=== PATIENT | female | born 1960 | race Caucasian/White ===

== ENCOUNTER 2023-08-18 10:40 | Inpatient (IN) ==
[2023-08-18] MEDS: Lactated Ringers 1000 ml BAG 1,000 ML IV ONE (11:25)
[2023-08-18] MEDS: Piperacillin/Tazobac 3.375 BAG 3.375 GM/100 ML BAG IV ONE (11:25)
[2023-08-18 11:28] LABS: Hematocrit 29.7 % (35-45); Hemoglobin 9.7 g/dL (11.5-14.3); Mean Corpuscular Hemoglobin 30.8 pg (27-33); Mean Corpuscular Hgb Conc 32.6 g/dL (31-36); Mean Corpuscular Volume 94.3 fL (80-97); Mean Platelet Volume 8.7 fL (7.5-11.2); Platelet Count 481 10^3/uL (150-450); Red Blood Count 3.15 10^6/uL (3.63-4.92); Red Cell Distribution Width 16.6 % (12-17); White Blood Count 19.6 10^3/uL (3.8-11.8)
[2023-08-18 11:39] LABS: Urine Appearance Extra Turbid; Urine Bilirubin Negative (Negative); Urine Blood 2+ (Negative); Urine Glucose Negative (Negative); Urine Ketones Negative (Negative); Urine Nitrite Negative (Negative); Urine Protein 2+ (>=100 mg/dL) (Negative); Urine Specific Gravity 1.015 (1.002-1.030); Urine Urobilinogen Negative (Negative); Urine pH 6.5 (5.0-8.0)
[2023-08-18 11:42] LABS: INR 1.83 (0.83-1.13)
[2023-08-18 11:45] LABS: Urine Bacteria 2+ /HPF (Absent); Urine Color Yellow; Urine Red Blood Cell 3+(>10/hpf) /HPF (0-Trace); Urine Squamous Epithelial Cell Present /HPF (Absent); Urine White Blood Cell 3+(>20/hpf) /HPF (0-Trace)
[2023-08-18 11:51] LABS: Albumin 3.1 g/dL (3.2-5.2); Albumin/Globulin Ratio 0.8 (1-3); Calcium 9.8 mg/dL (8.6-10.3); Creatinine, Serum 8.06 mg/dL (0.51-0.95); Globulin 4.1 g/dL (2-4); Potassium 5.2 mmol/L (3.5-5.0); Total Bilirubin 0.3 mg/dL (0.2-1.0); Total Protein 7.2 g/dL (6.4-8.9); eGFR CKD-EPI 5.2 (>60)
[2023-08-18 11:56] LABS: ABS Basophils 0.1 10^3/uL (0.0-0.1); ABS Eosinophils 0.2 10^3/uL (0.0-0.5); ABS Lymphocytes 1.2 10^3/uL (1.0-4.8); ABS Monocytes 2.2 10^3/uL (0.0-0.9); ABS Neutrophils 15.9 10^3/uL (1.5-7.6); ABS Nucleated RBC 0.06 10^3/ul; Eosinophil % 0.9 %; Lymphocyte % 6.1 %; Nucleated Red Blood Cells % 0.3 %/100WBC (0.0-0.8); RBC Morphology Normal (Normal)
[2023-08-18] MEDS: Vancomycin 1,000 MG in NS 0.9% 250 ml 250 ML IVPB ONE (12:11)
[2023-08-18 13:09] LABS: C Reactive Protein 559.27 mg/L (<8.01)
[2023-08-18 13:11] LABS: High Sensitivity Troponin 1 Hr 35 pg/mL (<15)
[2023-08-18 15:29] LABS: Body Fluid Total Nucleated 55 /mcL
[2023-08-18 15:40] LABS: Body Fluid Appearance Cloudy; Body Fluid Source Peritonial Fluid
[2023-08-18 15:41] LABS: Body Fluid Color Colorless
[2023-08-18 16:05] LABS: Body Fluid Mono 28 %; Body Fluid Total Cells Counted 200
[2023-08-18] MEDS ORDERED: oxyCODONE/Acetamin 5/325 mg TAB PO ONE (16:43)
[2023-08-18] MEDS ORDERED: Zosyn per Pharmacy NOTE FOLLOW UP SCH (19:00)
[2023-08-18] MEDS ORDERED: DOXYcycline 100 MG in NS 0.9% 250 ml 250 ML IVPB SCH (20:00)
[2023-08-18] MEDS ORDERED: Azithromycin 500 mg/250 ml NS 500 MG/250 ML BAG IVPB SCH (20:00)
[2023-08-18] MEDS: ZOSYN 3.375 GM x ONE DOSE over 30 miuntes IV (20:14)
[2023-08-18] MEDS: Doxycycline 100 MG in NS 0.9% 250 ML BAG IVPB SCH (21:04)
[2023-08-18] MEDS: CMCS:Febuxostat 40 mg TAB (NF) PO SCH (21:29)
[2023-08-18] MEDS ORDERED: Palonosetron 0.25 MG in NS 0.9% 50 ML 50 ML IVPB ONE (21:40)
[2023-08-18] MEDS: PALONOSETRON HCL 0.05 MG/ML (0.25 MG) SYRINGE (0.05 MG/ML) IV ONE (22:49)
[2023-08-18] MEDS: cycloSPORINE Modified 25mg CAP PO SCH (23:14)
[2023-08-19] MEDS: ZOSYN 3.375 GM Q12H per EXTENDED INFUSION IV SCH (00:23)
[2023-08-19 01:50] LABS: Calcium 8.6 mg/dL (8.6-10.3); Creatinine, Serum 7.44 mg/dL (0.51-0.95); eGFR CKD-EPI 5.8 (>60)
[2023-08-19] MEDS: oxyCODONE/Acetamin 5/325 mg TAB PO PRN (02:07)
[2023-08-19 06:22] LABS: Hematocrit 23.8 % (35-45); Hemoglobin 7.7 g/dL (11.5-14.3); Mean Corpuscular Hemoglobin 30.3 pg (27-33); Mean Corpuscular Hgb Conc 32.2 g/dL (31-36); Mean Platelet Volume 8.6 fL (7.5-11.2); Platelet Count 413 10^3/uL (150-450); Red Blood Count 2.53 10^6/uL (3.63-4.92); Red Cell Distribution Width 16.4 % (12-17); White Blood Count 17.9 10^3/uL (3.8-11.8)
[2023-08-19 06:36] LABS: ABS Eosinophils 0.1 10^3/uL (0.0-0.5); ABS Lymphocytes 0.7 10^3/uL (1.0-4.8); ABS Monocytes 1.6 10^3/uL (0.0-0.9); ABS Neutrophils 15.4 10^3/uL (1.5-7.6); ABS Nucleated RBC 0.02 10^3/ul; Eosinophil % 0.7 %; Lymphocyte % 3.9 %; Nucleated Red Blood Cells % 0.1 %/100WBC (0.0-0.8)
[2023-08-19 06:54] LABS: Albumin 2.5 g/dL (3.2-5.2); Albumin/Globulin Ratio 0.8 (1-3); Calcium 8.5 mg/dL (8.6-10.3); Globulin 3.3 g/dL (2-4); Potassium 5.1 mmol/L (3.5-5.0); Total Bilirubin 0.3 mg/dL (0.2-1.0); Total Protein 5.8 g/dL (6.4-8.9)
[2023-08-19 07:36] LABS: Creatinine, Serum 7.86 mg/dL (0.51-0.95); eGFR CKD-EPI 5.4 (>60)
[2023-08-19 13:02] LABS: Hematocrit 24.6 % (35-45); Hemoglobin 7.9 g/dL (11.5-14.3)
[2023-08-19] MEDS: Heparin 1,000 UNIT/ML 10 ml (10,000 UNITS) CATHLAB/DIALYSIS DIALYSIS SCH (15:00)
[2023-08-19 16:23] LABS: Glucose, BF 149 mg/dL
[2023-08-19] MEDS: Polyethylene Glycol 3350 17 GM PACKET PO SCH (21:07)
[2023-08-20] MEDS: cefTRIAXone VIAL 1,000 MG in NS 0.9% 50 ML 50 ML IVPB SCH (14:25)
[2023-08-20] MEDS ORDERED: Zosyn per Pharmacy NOTE FOLLOW UP SCH (16:00)
[2023-08-20 21:00] LABS: Fungitell Qualitative Result Negative (Negative); Fungitell Quantitative Value 46 pg/mL (<60 pg/mL)
[2023-08-21 06:21] LABS: Hematocrit 22.2 % (35-45); Hemoglobin 7.3 g/dL (11.5-14.3); Mean Corpuscular Hgb Conc 32.9 g/dL (31-36); Mean Corpuscular Volume 94.2 fL (80-97); Platelet Count 411 10^3/uL (150-450); Red Blood Count 2.35 10^6/uL (3.63-4.92); Red Cell Distribution Width 16.2 % (12-17); White Blood Count 10.8 10^3/uL (3.8-11.8)
[2023-08-21 06:56] LABS: Calcium 8.3 mg/dL (8.6-10.3); Creatinine, Serum 6.18 mg/dL (0.51-0.95); Magnesium 2.2 mg/dL (1.9-2.7); Potassium 4.4 mmol/L (3.5-5.0); eGFR CKD-EPI 7.2 (>60)
[2023-08-21 07:25] LABS: ABS Basophils 0.1 10^3/uL (0.0-0.1); ABS Eosinophils 0.1 10^3/uL (0.0-0.5); ABS Lymphocytes 1.1 10^3/uL (1.0-4.8); ABS Monocytes 1.6 10^3/uL (0.0-0.9); ABS Neutrophils 7.9 10^3/uL (1.5-7.6); ABS Nucleated RBC 0.01 10^3/ul; Anisocytosis 1+; Eosinophil % 1.3 %; Lymphocyte % 10.6 %; Nucleated Red Blood Cells % 0.1 %/100WBC (0.0-0.8)
[2023-08-21] MEDS: cefTRIAXone 1 gm/50 mL D5W 1 GM/50 ML BAG IV SCH (11:23)
[2023-08-21] MEDS ORDERED: Polyethylene Glycol 3350 17 GM PACKET PO PRN (11:54)
[2023-08-22 05:53] LABS: Hematocrit 22.5 % (35-45); Hemoglobin 7.4 g/dL (11.5-14.3); Mean Corpuscular Hemoglobin 30.8 pg (27-33); Mean Corpuscular Hgb Conc 32.9 g/dL (31-36); Mean Corpuscular Volume 93.6 fL (80-97); Mean Platelet Volume 8.3 fL (7.5-11.2); Platelet Count 429 10^3/uL (150-450); Red Blood Count 2.41 10^6/uL (3.63-4.92); Red Cell Distribution Width 16.2 % (12-17)
[2023-08-22 06:55] LABS: Calcium 8.5 mg/dL (8.6-10.3); Creatinine, Serum 5.84 mg/dL (0.51-0.95); Potassium 4.5 mmol/L (3.5-5.0); eGFR CKD-EPI 7.7 (>60)
[2023-08-22 08:03] LABS: ABS Eosinophils 0.2 10^3/uL (0.0-0.5); ABS Lymphocytes 1.2 10^3/uL (1.0-4.8); ABS Monocytes 1.6 10^3/uL (0.0-0.9); ABS Nucleated RBC 0.03 10^3/ul; Eosinophil % 1.6 %; Nucleated Red Blood Cells % 0.3 %/100WBC (0.0-0.8)
[2023-08-22 08:13] LABS: RBC Morphology Normal (Normal)
[2023-08-23] MEDS: cloNIDine 0.2 MG PATCH 0.2 MG/24 HR 7 DAY PATCH TRANSDERM SCH (08:14)
[2023-08-23 09:48] LABS: Hematocrit 24.2 % (35-45); Mean Corpuscular Hemoglobin 30.4 pg (27-33); Mean Corpuscular Hgb Conc 32.8 g/dL (31-36); Mean Corpuscular Volume 92.8 fL (80-97); Mean Platelet Volume 7.8 fL (7.5-11.2); Platelet Count 453 10^3/uL (150-450); Red Blood Count 2.61 10^6/uL (3.63-4.92); White Blood Count 16.3 10^3/uL (3.8-11.8)
[2023-08-23 10:16] LABS: Calcium 8.7 mg/dL (8.6-10.3); Creatinine, Serum 5.2 mg/dL (0.51-0.95); Magnesium 2.1 mg/dL (1.9-2.7); Phosphorus 5.4 mg/dL (2.5-5.0); Potassium 4.6 mmol/L (3.5-5.0); eGFR CKD-EPI 8.9 (>60)
[2023-08-23 10:22] LABS: ABS Basophils 0.1 10^3/uL (0.0-0.1); ABS Eosinophils 0.6 10^3/uL (0.0-0.5); ABS Lymphocytes 1.4 10^3/uL (1.0-4.8); ABS Monocytes 1.8 10^3/uL (0.0-0.9); ABS Neutrophils 12.4 10^3/uL (1.5-7.6); ABS Nucleated RBC 0.05 10^3/ul; Eosinophil % 3.6 %; Lymphocyte % 8.8 %; Nucleated Red Blood Cells % 0.3 %/100WBC (0.0-0.8); RBC Morphology Normal (Normal)
[2023-08-24 06:04] LABS: Hematocrit 23.4 % (35-45); Hemoglobin 7.6 g/dL (11.5-14.3); Mean Corpuscular Hemoglobin 30.3 pg (27-33); Mean Corpuscular Hgb Conc 32.6 g/dL (31-36); Mean Corpuscular Volume 93.1 fL (80-97); Mean Platelet Volume 8.1 fL (7.5-11.2); Platelet Count 407 10^3/uL (150-450); Red Blood Count 2.51 10^6/uL (3.63-4.92); White Blood Count 15.8 10^3/uL (3.8-11.8)
[2023-08-24 06:30] LABS: ABS Basophils 0.1 10^3/uL (0.0-0.1); ABS Eosinophils 0.5 10^3/uL (0.0-0.5); ABS Lymphocytes 1.7 10^3/uL (1.0-4.8); ABS Monocytes 1.9 10^3/uL (0.0-0.9); ABS Neutrophils 11.7 10^3/uL (1.5-7.6); ABS Nucleated RBC 0.08 10^3/ul; Anisocytosis 1+; Eosinophil % 3.4 %; Lymphocyte % 10.7 %; Nucleated Red Blood Cells % 0.5 %/100WBC (0.0-0.8); Polychromasia 1+
[2023-08-24 06:35] LABS: Calcium 8.4 mg/dL (8.6-10.3); Magnesium 2.1 mg/dL (1.9-2.7); Phosphorus 5.9 mg/dL (2.5-5.0); Potassium 4.4 mmol/L (3.5-5.0); eGFR CKD-EPI 9.3 (>60)
[2023-08-25 05:28] LABS: Hematocrit 25.8 % (35-45); Hemoglobin 8.4 g/dL (11.5-14.3); Mean Corpuscular Hemoglobin 30.3 pg (27-33); Mean Corpuscular Hgb Conc 32.4 g/dL (31-36); Mean Corpuscular Volume 93.4 fL (80-97); Mean Platelet Volume 8.8 fL (7.5-11.2); Platelet Count 489 10^3/uL (150-450); Red Blood Count 2.76 10^6/uL (3.63-4.92); Red Cell Distribution Width 15.7 % (12-17); White Blood Count 19.7 10^3/uL (3.8-11.8)
[2023-08-25 06:22] LABS: Calcium 8.7 mg/dL (8.6-10.3); Creatinine, Serum 5.28 mg/dL (0.51-0.95); eGFR CKD-EPI 8.7 (>60)
[2023-08-25 07:17] LABS: ABS Basophils 0.1 10^3/uL (0.0-0.1); ABS Lymphocytes 1.5 10^3/uL (1.0-4.8); ABS Monocytes 1.5 10^3/uL (0.0-0.9); ABS Neutrophils 15.7 10^3/uL (1.5-7.6); ABS Nucleated RBC 0.12 10^3/ul; Eosinophil % 4.9 %; Lymphocyte % 7.8 %; Nucleated Red Blood Cells % 0.6 %/100WBC (0.0-0.8)
[2023-08-26 05:25] LABS: Hematocrit 23.1 % (35-45); Hemoglobin 7.5 g/dL (11.5-14.3); Mean Corpuscular Hemoglobin 30.3 pg (27-33); Mean Corpuscular Hgb Conc 32.7 g/dL (31-36); Mean Corpuscular Volume 92.6 fL (80-97); Mean Platelet Volume 8.7 fL (7.5-11.2); Platelet Count 395 10^3/uL (150-450); Red Blood Count 2.49 10^6/uL (3.63-4.92); Red Cell Distribution Width 16.5 % (12-17); White Blood Count 15.8 10^3/uL (3.8-11.8)
[2023-08-26 05:48] LABS: Calcium 8.6 mg/dL (8.6-10.3); Creatinine, Serum 5.18 mg/dL (0.51-0.95); Potassium 3.9 mmol/L (3.5-5.0); eGFR CKD-EPI 8.9 (>60)
[2023-08-26 05:52] VITALS: BP 120/70
[2023-08-26 07:00] LABS: ABS Basophils 0.1 10^3/uL (0.0-0.1); ABS Eosinophils 0.5 10^3/uL (0.0-0.5); ABS Lymphocytes 1.3 10^3/uL (1.0-4.8); ABS Monocytes 1.6 10^3/uL (0.0-0.9); ABS Neutrophils 12.4 10^3/uL (1.5-7.6); ABS Nucleated RBC 0.06 10^3/ul; Anisocytosis 1+; Eosinophil % 3.2 %; Nucleated Red Blood Cells % 0.4 %/100WBC (0.0-0.8); Polychromasia 1+
[2023-08-28] MEDS ORDERED: Amoxicillin/Clavul 250/125 TAB (Augmentin 250 TAB) PO SCH (21:00)
== END 2023-08-26 10:24 | DRG 720 ==
LOC: ED 10:40 → EDHOLD 16:55 → SUATTDRO 16:55 → MEDTELE 17:52 → PMRU 08-26 10:05
PROVIDERS: ADMIT Student in an Organized Health Care Education/Training Program; ATTEND Hospitalist

== ENCOUNTER 2023-08-26 09:15 | Inpatient (IN) ==
[2023-08-26] MEDS ORDERED: Senna TAB 8.6 mg TAB PO PRN (13:21)
[2023-08-26] MEDS ORDERED: Polyethylene Glycol 3350 17 GM PACKET PO PRN (15:15)
[2023-08-26] MEDS ORDERED: oxyCODONE/Acetamin 5/325 mg TAB PO PRN (19:56)
[2023-08-26] MEDS: Amoxicillin/Clavul 500/125 TAB (Augmentin 500 mg tab) PO SCH (20:41)
[2023-08-26] MEDS: CMCS: Febuxostat 40 mg TAB (NF) PO SCH (20:41)
[2023-08-26] MEDS: cycloSPORINE Modified 25mg CAP PO SCH (20:42)
[2023-08-27 05:52] LABS: Hematocrit 22.9 % (35-45); Hemoglobin 7.4 g/dL (11.5-14.3); Mean Corpuscular Hemoglobin 30.3 pg (27-33); Mean Corpuscular Hgb Conc 32.4 g/dL (31-36); Mean Corpuscular Volume 93.6 fL (80-97); Mean Platelet Volume 8.8 fL (7.5-11.2); Platelet Count 402 10^3/uL (150-450); Red Blood Count 2.45 10^6/uL (3.63-4.92); Red Cell Distribution Width 16.8 % (12-17); White Blood Count 17.8 10^3/uL (3.8-11.8)
[2023-08-27 07:13] LABS: ABS Basophils 0.1 10^3/uL (0.0-0.1); ABS Eosinophils 0.7 10^3/uL (0.0-0.5); ABS Lymphocytes 1.3 10^3/uL (1.0-4.8); ABS Monocytes 1.6 10^3/uL (0.0-0.9); ABS Neutrophils 14.3 10^3/uL (1.5-7.6); ABS Nucleated RBC 0.03 10^3/ul; Anisocytosis 1+; Eosinophil % 3.7 %; Nucleated Red Blood Cells % 0.2 %/100WBC (0.0-0.8); Polychromasia 1+
[2023-08-27 07:16] LABS: Albumin 2.8 g/dL (3.2-5.2); Albumin/Globulin Ratio 0.9 (1-3); Calcium 8.7 mg/dL (8.6-10.3); Creatinine, Serum 5.51 mg/dL (0.51-0.95); Potassium 3.8 mmol/L (3.5-5.0); Total Bilirubin 0.3 mg/dL (0.2-1.0); Total Protein 5.8 g/dL (6.4-8.9); eGFR CKD-EPI 8.3 (>60)
[2023-08-27] MEDS: Heparin 1,000 UNIT/ML 10 ml (10,000 UNITS) CATHLAB/DIALYSIS DIALYSIS SCH (08:26)
[2023-08-29 05:46] LABS: Hematocrit 22.4 % (35-45); Hemoglobin 7.5 g/dL (11.5-14.3); Mean Corpuscular Hgb Conc 33.2 g/dL (31-36); Mean Corpuscular Volume 93.2 fL (80-97); Mean Platelet Volume 9.2 fL (7.5-11.2); Platelet Count 346 10^3/uL (150-450); Red Blood Count 2.41 10^6/uL (3.63-4.92); Red Cell Distribution Width 16.7 % (12-17); White Blood Count 11.9 10^3/uL (3.8-11.8)
[2023-08-29 08:26] LABS: ABS Basophils 0.1 10^3/uL (0.0-0.1); ABS Eosinophils 0.4 10^3/uL (0.0-0.5); ABS Lymphocytes 1.2 10^3/uL (1.0-4.8); ABS Monocytes 1.2 10^3/uL (0.0-0.9); ABS Neutrophils 9.1 10^3/uL (1.5-7.6); ABS Nucleated RBC 0.01 10^3/ul; Lymphocyte % 9.8 %; Nucleated Red Blood Cells % 0.1 %/100WBC (0.0-0.8); RBC Morphology Normal (Normal)
[2023-08-30] MEDS: cloNIDine 0.2 MG PATCH 0.2 MG/24 HR 7 DAY PATCH TRANSDERM SCH (08:43)
[2023-09-01] MEDS: Heparin 1,000 UNIT/ML 10 ml (10,000 UNITS) CATHLAB/DIALYSIS DIALYSIS SCH (19:21)
[2023-09-03 07:38] LABS: Hematocrit 22.3 % (35-45); Hemoglobin 7.4 g/dL (11.5-14.3); Mean Corpuscular Hemoglobin 30.7 pg (27-33); Mean Corpuscular Volume 92.8 fL (80-97); Mean Platelet Volume 8.7 fL (7.5-11.2); Platelet Count 364 10^3/uL (150-450); Red Cell Distribution Width 16.6 % (12-17); White Blood Count 7.5 10^3/uL (3.8-11.8)
[2023-09-03 08:38] LABS: ABS Eosinophils 0.5 10^3/uL (0.0-0.5); ABS Lymphocytes 1.2 10^3/uL (1.0-4.8); ABS Monocytes 1.2 10^3/uL (0.0-0.9); ABS Neutrophils 4.7 10^3/uL (1.5-7.6); ABS Nucleated RBC 0.01 10^3/ul; Anisocytosis 1+; Eosinophil % 6.1 %; Lymphocyte % 15.3 %; Nucleated Red Blood Cells % 0.1 %/100WBC (0.0-0.8); Polychromasia 1+
[2023-09-03 09:08] LABS: Albumin 2.7 g/dL (3.2-5.2); Albumin/Globulin Ratio 0.9 (1-3); Calcium 8.6 mg/dL (8.6-10.3); Creatinine, Serum 5.25 mg/dL (0.51-0.95); Globulin 2.9 g/dL (2-4); Potassium 3.8 mmol/L (3.5-5.0); Total Bilirubin 0.3 mg/dL (0.2-1.0); Total Protein 5.6 g/dL (6.4-8.9); eGFR CKD-EPI 8.8 (>60)
[2023-09-04 05:55] VITALS: BP 96/65
== END 2023-09-04 13:00 | disposition home or self-care (01) | DRG 139 ==
LOC: PMRU 10:24
PROVIDERS: ADMIT Physical Medicine & Rehabilitation; ATTEND Physical Medicine & Rehabilitation

== ENCOUNTER 2023-09-16 10:46 | Inpatient (IN) ==
[2023-09-16 12:10] LABS: Hematocrit 28.4 % (35-45); Hemoglobin 9.1 g/dL (11.5-14.3); Mean Corpuscular Hemoglobin 29.7 pg (27-33); Mean Corpuscular Hgb Conc 32.1 g/dL (31-36); Mean Corpuscular Volume 92.5 fL (80-97); Mean Platelet Volume 7.8 fL (7.5-11.2); Platelet Count 472 10^3/uL (150-450); Red Blood Count 3.06 10^6/uL (3.63-4.92); Red Cell Distribution Width 17.2 % (12-17); White Blood Count 13.7 10^3/uL (3.8-11.8)
[2023-09-16 12:15] LABS: INR 1.71 (0.83-1.13)
[2023-09-16 12:56] LABS: Albumin 3.1 g/dL (3.2-5.2); Albumin/Globulin Ratio 0.9 (1-3); C Reactive Protein 179.22 mg/L (<8.01); Calcium 9.6 mg/dL (8.6-10.3); Creatinine, Serum 8.04 mg/dL (0.51-0.95); Globulin 3.6 g/dL (2-4); Magnesium 2.8 mg/dL (1.9-2.7); Total Bilirubin 0.3 mg/dL (0.2-1.0); Total Protein 6.7 g/dL (6.4-8.9); eGFR CKD-EPI 5.3 (>60)
[2023-09-16] MEDS: Lactated Ringers 1000 ml BAG 500 ML IV ONE (12:56)
[2023-09-16 13:09] LABS: ABS Basophils 0.1 10^3/uL (0.0-0.1); ABS Eosinophils 0.2 10^3/uL (0.0-0.5); ABS Lymphocytes 1.6 10^3/uL (1.0-4.8); ABS Monocytes 2.1 10^3/uL (0.0-0.9); ABS Neutrophils 9.8 10^3/uL (1.5-7.6); ABS Nucleated RBC 0.01 10^3/ul; Eosinophil % 1.3 %; Lymphocyte % 11.4 %; Nucleated Red Blood Cells % 0.1 %/100WBC (0.0-0.8); RBC Morphology Normal (Normal)
[2023-09-16] MEDS: Piperacillin/Tazobac 3.375 BAG 3.375 GM/100 ML BAG IV ONE (14:26)
[2023-09-16 14:29] LABS: High Sensitivity Troponin 1 Hr 20 pg/mL (<15)
[2023-09-16] MEDS: Heparin 1,000 UNIT/ML 10 ml (10,000 UNITS) CATHLAB/DIALYSIS DIALYSIS SCH (16:53)
[2023-09-16] MEDS ORDERED: Azithromycin 500 mg/250 ml NS 500 MG/250 ML BAG IVPB SCH (17:00)
[2023-09-16] MEDS ORDERED: cefTRIAXone 1 gm/50 mL D5W 1 GM/50 ML BAG IV SCH (17:30)
[2023-09-16] MEDS: Azithromycin 500 mg/250 ml NS 500 MG/250 ML BAG IVPB SCH (19:28)
[2023-09-16] MEDS: cefTRIAXone 1 gm/50 mL D5W 1 GM/50 ML BAG IV SCH (20:18)
[2023-09-16] MEDS: cycloSPORINE Modified 25mg CAP PO SCH (20:20)
[2023-09-16] MEDS: CMC:Febuxostat 40 mg TAB (NF) PO SCH (20:21)
[2023-09-16] MEDS: Polyethylene Glycol 3350 17 GM PACKET PO SCH (20:25)
[2023-09-16] MEDS: guaiFENesin 100 mg/5 ml LIQ unit dose cup PO PRN (20:41)
[2023-09-16] MEDS ORDERED: Senna TAB 8.6 mg TAB PO PRN (21:00)
[2023-09-17 07:55] LABS: Hematocrit 25.1 % (35-45); Hemoglobin 8.2 g/dL (11.5-14.3); Mean Corpuscular Hemoglobin 30.5 pg (27-33); Mean Corpuscular Hgb Conc 32.8 g/dL (31-36); Mean Platelet Volume 8.6 fL (7.5-11.2); Platelet Count 376 10^3/uL (150-450); Red Cell Distribution Width 17.2 % (12-17); White Blood Count 10.4 10^3/uL (3.8-11.8)
[2023-09-17 08:53] LABS: Calcium 8.8 mg/dL (8.6-10.3); Creatinine, Serum 8.05 mg/dL (0.51-0.95); Potassium 5.7 mmol/L (3.5-5.0); eGFR CKD-EPI 5.2 (>60)
[2023-09-17 09:10] LABS: ABS Basophils 0.1 10^3/uL (0.0-0.1); ABS Lymphocytes 1.1 10^3/uL (1.0-4.8); ABS Neutrophils 8.2 10^3/uL (1.5-7.6); ABS Nucleated RBC 0.01 10^3/ul; Anisocytosis 1+; Eosinophil % 0.1 %; Lymphocyte % 11.1 %; Nucleated Red Blood Cells % 0.1 %/100WBC (0.0-0.8); Polychromasia 1+
[2023-09-17] MEDS: SODIUM ZIRCONIUM CYCLOSILICATE 10 GM PACKET PO ONE (10:48)
[2023-09-17] MEDS: Calcium Carb (TUMS) 500 mg CHEW TAB PO PRN (17:51)
[2023-09-17] MEDS: Ondansetron 4 mg VIAL 2 MG/ML 2 ml VIAL IV PRN (18:35)
[2023-09-18 06:25] LABS: Hematocrit 23.9 % (35-45); Hemoglobin 7.8 g/dL (11.5-14.3); Mean Corpuscular Hgb Conc 32.4 g/dL (31-36); Mean Corpuscular Volume 92.6 fL (80-97); Mean Platelet Volume 8.3 fL (7.5-11.2); Platelet Count 410 10^3/uL (150-450); Red Blood Count 2.58 10^6/uL (3.63-4.92); Red Cell Distribution Width 16.9 % (12-17); White Blood Count 9.1 10^3/uL (3.8-11.8)
[2023-09-18 06:51] LABS: Albumin 2.7 g/dL (3.2-5.2); Albumin/Globulin Ratio 0.8 (1-3); Calcium 9.2 mg/dL (8.6-10.3); Creatinine, Serum 7.82 mg/dL (0.51-0.95); Globulin 3.4 g/dL (2-4); Magnesium 2.6 mg/dL (1.9-2.7); Total Bilirubin 0.2 mg/dL (0.2-1.0); Total Protein 6.1 g/dL (6.4-8.9); eGFR CKD-EPI 5.4 (>60)
[2023-09-18 07:31] LABS: ABS Lymphocytes 1.6 10^3/uL (1.0-4.8); ABS Monocytes 1.3 10^3/uL (0.0-0.9); ABS Neutrophils 6.1 10^3/uL (1.5-7.6); ABS Nucleated RBC 0.01 10^3/ul; Anisocytosis 1+; Eosinophil % 0.4 %; Lymphocyte % 17.3 %; Nucleated Red Blood Cells % 0.1 %/100WBC (0.0-0.8); Polychromasia 1+
[2023-09-18 14:08] VITALS: BP 100/78
[2023-09-20] MEDS ORDERED: cloNIDine 0.2 MG PATCH 0.2 MG/24 HR 7 DAY PATCH TRANSDERM SCH (09:00)
== END 2023-09-18 16:25 | disposition home health service (06) | DRG 720 ==
LOC: ED 10:46 → EDHOLD 15:00 → MED 16:30
PROVIDERS: ADMIT Hospitalist; ATTEND Hospitalist

== ENCOUNTER 2023-11-03 22:19 | Inpatient (IN) ==
[2023-11-03 23:11] LABS: Hematocrit 31.3 % (35-45); Hemoglobin 10.2 g/dL (11.5-14.3); Mean Corpuscular Hemoglobin 30.5 pg (27-33); Mean Corpuscular Hgb Conc 32.7 g/dL (31-36); Mean Corpuscular Volume 93.2 fL (80-97); Mean Platelet Volume 8.2 fL (7.5-11.2); Platelet Count 348 10^3/uL (150-450); Red Blood Count 3.36 10^6/uL (3.63-4.92); Red Cell Distribution Width 17.1 % (12-17); White Blood Count 13.8 10^3/uL (3.8-11.8)
[2023-11-03 23:24] LABS: INR 1.46 (0.83-1.13)
[2023-11-03 23:54] LABS: Albumin 3.2 g/dL (3.2-5.2); Albumin/Globulin Ratio 0.8 (1-3); Calcium 9.2 mg/dL (8.6-10.3); Creatinine, Serum 9.5 mg/dL (0.51-0.95); Globulin 3.8 g/dL (2-4); Potassium 5.7 mmol/L (3.5-5.0); Total Bilirubin 0.4 mg/dL (0.2-1.0); eGFR CKD-EPI 4.3 (>60)
[2023-11-04] MEDS: Cefepime 2 GM in Dextrose 2 GM/50 ML BAG IV ONE (00:02)
[2023-11-04 00:34] LABS: ABS Basophils 0.1 10^3/uL (0.0-0.1); ABS Eosinophils 0.1 10^3/uL (0.0-0.5); ABS Monocytes 1.3 10^3/uL (0.0-0.9); ABS Neutrophils 11.4 10^3/uL (1.5-7.6); ABS Nucleated RBC 0.01 10^3/ul; Eosinophil % 0.7 %; Lymphocyte % 7.5 %; Nucleated Red Blood Cells % 0.1 %/100WBC (0.0-0.8)
[2023-11-04 00:35] LABS: Anisocytosis 1+; Polychromasia 1+
[2023-11-04] MEDS: Azithromycin 500 mg/250 ml NS 500 MG/250 ML BAG IVPB ONE (00:44)
[2023-11-04 00:56] LABS: C Reactive Protein 268.47 mg/L (<8.01)
[2023-11-04] MEDS: Ondansetron 4 mg VIAL 2 MG/ML 2 ml VIAL IV ONE (01:04)
[2023-11-04 01:49] LABS: High Sensitivity Troponin 1 Hr 33 pg/mL (<15)
[2023-11-04] MEDS: Lactated Ringers 1000 ml BAG 1,000 ML IV ONE (02:06)
[2023-11-04 03:34] LABS: Urine Appearance Extra Turbid; Urine Bilirubin Negative (Negative); Urine Blood 2+ (Negative); Urine Glucose Negative (Negative); Urine Ketones Negative (Negative); Urine Nitrite Negative (Negative); Urine Protein 3+ (>=300 mg/dL) (Negative); Urine Specific Gravity 1.016 (1.002-1.030); Urine Urobilinogen Negative (Negative)
[2023-11-04 03:40] LABS: Urine Bacteria Absent /HPF (Absent); Urine Red Blood Cell 1+(3-5/hpf) /HPF (0-Trace); Urine Squamous Epithelial Cell Present /HPF (Absent); Urine White Blood Cell 3+(>20/hpf) /HPF (0-Trace)
[2023-11-04 04:05] LABS: Urine Color Yellow
[2023-11-04] MEDS: SODIUM ZIRCONIUM CYCLOSILICATE 10 GM PACKET PO ONE (05:15)
[2023-11-04] MEDS: Cholecalciferol (VIT D3) 1,000 unit TAB PO SCH (09:44)
[2023-11-04] MEDS: cycloSPORINE Modified 25mg CAP PO SCH (09:44)
[2023-11-04] MEDS: CYANOCOBALAMIN 50 MCG PO SCH (09:48)
[2023-11-04 10:14] LABS: ABS Basophils 0.1 10^3/uL (0.0-0.1); ABS Eosinophils 0.2 10^3/uL (0.0-0.5); ABS Lymphocytes 0.8 10^3/uL (1.0-4.8); ABS Neutrophils 10.6 10^3/uL (1.5-7.6); Eosinophil % 1.5 %; Hematocrit 26.7 % (35-45); Hemoglobin 8.8 g/dL (11.5-14.3); Lymphocyte % 6.2 %; Mean Corpuscular Hemoglobin 30.7 pg (27-33); Mean Corpuscular Hgb Conc 33.1 g/dL (31-36); Mean Corpuscular Volume 92.9 fL (80-97); Mean Platelet Volume 8.1 fL (7.5-11.2); Platelet Count 315 10^3/uL (150-450); Red Blood Count 2.87 10^6/uL (3.63-4.92); Red Cell Distribution Width 17.5 % (12-17); White Blood Count 12.6 10^3/uL (3.8-11.8)
[2023-11-04] MEDS: cefTRIAXone 1 gm/50 mL D5W 1 GM/50 ML BAG IV SCH (10:44)
[2023-11-04 11:07] LABS: Calcium 8.6 mg/dL (8.6-10.3); Creatinine, Serum 9.77 mg/dL (0.51-0.95); Magnesium 1.9 mg/dL (1.9-2.7); Potassium 5.3 mmol/L (3.5-5.0); eGFR CKD-EPI 4.2 (>60)
[2023-11-04] MEDS: Ondansetron 4 mg VIAL 2 MG/ML 2 ml VIAL IV PRN (12:57)
[2023-11-04] MEDS: cefTRIAXone 1 gm/50 mL D5W 1 GM/50 ML BAG IV ONE (16:27)
[2023-11-04] MEDS: Heparin 1,000 UNIT/ML 10 ml (10,000 UNITS) CATHLAB/DIALYSIS DIALYSIS SCH (17:10)
[2023-11-04 19:48] LABS: Body Fluid Total Nucleated 98 /mcL
[2023-11-04 19:52] LABS: Body Fluid Appearance Clear; Body Fluid Color Colorless; Body Fluid Mono 31 %; Body Fluid Source Peritonial Fluid; Body Fluid Total Cells Counted 200
[2023-11-04] MEDS: CMCS:Febuxostat 40 mg TAB (NF) PO SCH (21:16)
[2023-11-05 06:26] LABS: Hematocrit 25.8 % (35-45); Hemoglobin 8.7 g/dL (11.5-14.3); Mean Corpuscular Hemoglobin 31.2 pg (27-33); Mean Corpuscular Hgb Conc 33.7 g/dL (31-36); Mean Corpuscular Volume 92.5 fL (80-97); Mean Platelet Volume 8.1 fL (7.5-11.2); Platelet Count 264 10^3/uL (150-450); Red Blood Count 2.79 10^6/uL (3.63-4.92); Red Cell Distribution Width 17.1 % (12-17); White Blood Count 7.6 10^3/uL (3.8-11.8)
[2023-11-05 07:01] LABS: Calcium 8.6 mg/dL (8.6-10.3); Creatinine, Serum 9.14 mg/dL (0.51-0.95); Phosphorus 6.1 mg/dL (2.5-5.0); Potassium 4.1 mmol/L (3.5-5.0); eGFR CKD-EPI 4.5 (>60)
[2023-11-05 07:56] LABS: ABS Basophils 0.1 10^3/uL (0.0-0.1); ABS Eosinophils 0.3 10^3/uL (0.0-0.5); ABS Lymphocytes 0.8 10^3/uL (1.0-4.8); ABS Monocytes 1.2 10^3/uL (0.0-0.9); ABS Neutrophils 5.2 10^3/uL (1.5-7.6); Anisocytosis 1+; Eosinophil % 3.7 %; Lymphocyte % 11.2 %
[2023-11-05] MEDS: METOLAZONE 2.5 MG PO SCH (08:56)
[2023-11-05] MEDS: Iodixanol (CONTRAST) 320 MG/ML 100 ML SDV IV ONE (13:38)
[2023-11-05] MEDS: cefTRIAXone 2 gm/50 mL D5W 2 GM/50 ML BAG IV SCH (15:15)
[2023-11-05] MEDS: Calcium Carb (TUMS) 500 mg CHEW TAB PO ONE (17:48)
[2023-11-06 06:42] LABS: Hematocrit 26.8 % (35-45); Hemoglobin 9.1 g/dL (11.5-14.3); Mean Corpuscular Hemoglobin 30.9 pg (27-33); Mean Corpuscular Hgb Conc 33.8 g/dL (31-36); Mean Corpuscular Volume 91.4 fL (80-97); Mean Platelet Volume 8.4 fL (7.5-11.2); Platelet Count 302 10^3/uL (150-450); Red Blood Count 2.93 10^6/uL (3.63-4.92); Red Cell Distribution Width 16.9 % (12-17); White Blood Count 6.9 10^3/uL (3.8-11.8)
[2023-11-06 07:13] LABS: Calcium 8.7 mg/dL (8.6-10.3); Creatinine, Serum 8.66 mg/dL (0.51-0.95); Magnesium 1.8 mg/dL (1.9-2.7); Phosphorus 5.3 mg/dL (2.5-5.0); Potassium 3.8 mmol/L (3.5-5.0); eGFR CKD-EPI 4.8 (>60)
[2023-11-06 09:05] LABS: ABS Basophils 0.1 10^3/uL (0.0-0.1); ABS Eosinophils 0.2 10^3/uL (0.0-0.5); ABS Monocytes 1.2 10^3/uL (0.0-0.9); ABS Neutrophils 4.3 10^3/uL (1.5-7.6); ABS Nucleated RBC 0.01 10^3/ul; Eosinophil % 3.4 %; Nucleated Red Blood Cells % 0.1 %/100WBC (0.0-0.8); RBC Morphology Normal (Normal)
[2023-11-06] MEDS: Magnesium Sulfate 2 gm BAG 2 GM/50 ML BAG IVPB ONE (09:32)
[2023-11-06] MEDS: ceFAZolin VIAL 2 GM in NS 0.9% 100 ml BAG 100 ML IVPB SCH (12:04)
[2023-11-06 23:06] LABS: Anaplasma phagocytophilum Negative (Negative); B. miyamotoi PCR, B Negative (Negative); Babesia divergens/MO-1 Negative (Negative); Babesia ducani Negative (Negative); Ehrlichia chaffeensis Negative (Negative); Ehrlichia ewingii/canis Negative (Negative); Ehrlichia muris eauclairensis Negative (Negative)
[2023-11-06] MEDS: Calcium Carb (TUMS) 500 mg CHEW TAB PO PRN (23:50)
[2023-11-07 06:36] LABS: Hematocrit 25.5 % (35-45); Hemoglobin 8.7 g/dL (11.5-14.3); Mean Corpuscular Hemoglobin 30.9 pg (27-33); Mean Corpuscular Hgb Conc 34.2 g/dL (31-36); Mean Corpuscular Volume 90.4 fL (80-97); Mean Platelet Volume 8.4 fL (7.5-11.2); Platelet Count 320 10^3/uL (150-450); Red Blood Count 2.81 10^6/uL (3.63-4.92); Red Cell Distribution Width 16.5 % (12-17); White Blood Count 9.8 10^3/uL (3.8-11.8)
[2023-11-07 06:54] LABS: Calcium 8.8 mg/dL (8.6-10.3); Creatinine, Serum 8.2 mg/dL (0.51-0.95); Magnesium 2.5 mg/dL (1.9-2.7); Phosphorus 4.7 mg/dL (2.5-5.0); Potassium 3.9 mmol/L (3.5-5.0); eGFR CKD-EPI 5.1 (>60)
[2023-11-07 08:10] LABS: ABS Basophils 0.1 10^3/uL (0.0-0.1); ABS Eosinophils 0.2 10^3/uL (0.0-0.5); ABS Lymphocytes 1.6 10^3/uL (1.0-4.8); ABS Monocytes 1.7 10^3/uL (0.0-0.9); ABS Neutrophils 6.1 10^3/uL (1.5-7.6); Eosinophil % 2.3 %; Lymphocyte % 16.4 %; RBC Morphology Normal (Normal)
[2023-11-07] MEDS: ceFAZolin 2 GM in NS PREMIX 2 GM/100 ML BAG IVPB SCH (09:34)
[2023-11-07 11:33] LABS: Fluid Type, Protein, Total PERITONEAL FLUID; Glucose, BF 321 mg/dL; Total Protein, BF 0.8 g/dL
[2023-11-08 09:45] LABS: Calcium 8.8 mg/dL (8.6-10.3); Creatinine, Serum 8.28 mg/dL (0.51-0.95); Potassium 3.9 mmol/L (3.5-5.0); eGFR CKD-EPI 5.1 (>60)
[2023-11-09 06:56] LABS: Hematocrit 28.4 % (35-45); Hemoglobin 9.4 g/dL (11.5-14.3); Mean Corpuscular Hemoglobin 30.4 pg (27-33); Mean Corpuscular Hgb Conc 33.3 g/dL (31-36); Mean Corpuscular Volume 91.5 fL (80-97); Mean Platelet Volume 8.3 fL (7.5-11.2); Platelet Count 362 10^3/uL (150-450); Red Cell Distribution Width 16.6 % (12-17); White Blood Count 11.7 10^3/uL (3.8-11.8)
[2023-11-09 07:02] LABS: ABS Eosinophils 0.3 10^3/uL (0.0-0.5); ABS Monocytes 2.2 10^3/uL (0.0-0.9); ABS Neutrophils 7.2 10^3/uL (1.5-7.6); ABS Nucleated RBC 0.01 10^3/ul; Eosinophil % 2.2 %; Nucleated Red Blood Cells % 0.1 %/100WBC (0.0-0.8)
[2023-11-09 08:49] LABS: Calcium 9.1 mg/dL (8.6-10.3); Creatinine, Serum 8.69 mg/dL (0.51-0.95); Potassium 3.7 mmol/L (3.5-5.0); eGFR CKD-EPI 4.8 (>60)
[2023-11-09 09:34] VITALS: BP 117/69
[2023-11-09] MEDS ORDERED: cycloSPORINE Modified 25mg CAP PO SCH (21:00)
== END 2023-11-09 14:11 | DRG 871 ==
LOC: EDHOLD 22:19 → ED 22:19 → SUATTDRO 11-04 04:26 → MED 11-04 08:03 → SUATTDRO 11-04 13:21 → MED 11-04 15:34
PROVIDERS: ADMIT Internal Medicine; ATTEND Family Medicine

== ENCOUNTER 2023-11-09 12:36 | Inpatient (IN) ==
[2023-11-09] MEDS ORDERED: cycloSPORINE Modified 25mg CAP PO SCH (21:00)
[2023-11-09] MEDS: Febuxostat 40 mg TAB (NF) PO SCH (21:48)
[2023-11-09] MEDS: HEPARIN 1000 UNIT/ML SCH (22:26)
[2023-11-09] MEDS: cycloSPORINE Modified 25mg CAP PO SCH (23:44)
[2023-11-10 06:25] LABS: Hematocrit 30.1 % (35-45); Hemoglobin 9.8 g/dL (11.5-14.3); Mean Corpuscular Hgb Conc 32.7 g/dL (31-36); Mean Platelet Volume 8.5 fL (7.5-11.2); Platelet Count 378 10^3/uL (150-450); Red Blood Count 3.28 10^6/uL (3.63-4.92); White Blood Count 12.2 10^3/uL (3.8-11.8)
[2023-11-10 07:23] LABS: Anion Gap 18 mmol/L (2-16); Blood Urea Nitrogen 67 mg/dL (6-24); CO2 Carbon Dioxide 25 mmol/L (22-32); Calcium 9.3 mg/dL (8.6-10.3); Chloride 94 mmol/L (101-111); Creatinine, Serum 9.14 mg/dL (0.51-0.95); Glucose 93 mg/dL (70-100); Potassium 4.1 mmol/L (3.5-5.0); Sodium 137 mmol/L (135-145); eGFR CKD-EPI 4.5 (>60)
[2023-11-10 07:26] LABS: ABS Basophils 0.1 10^3/uL (0.0-0.1); ABS Eosinophils 0.2 10^3/uL (0.0-0.5); ABS Lymphocytes 2.3 10^3/uL (1.0-4.8); ABS Monocytes 2.3 10^3/uL (0.0-0.9); ABS Neutrophils 7.1 10^3/uL (1.5-7.6); ABS Nucleated RBC 0.01 10^3/ul; Anisocytosis 1+; Lymphocyte % 18.8 %; Polychromasia 1+
[2023-11-10 07:46] LABS: ALT < 3 U/L (7-52); AST 7 U/L (13-39); Albumin 2.5 g/dL (3.2-5.2); Albumin/Globulin Ratio 0.7 (1-3); Alkaline Phosphatase 83 U/L (35-149); Globulin 3.6 g/dL (2-4); Total Bilirubin 0.2 mg/dL (0.2-1.0); Total Protein 6.1 g/dL (6.4-8.9)
[2023-11-10] MEDS: Cholecalciferol (VIT D3) 1,000 unit TAB PO SCH (08:54)
[2023-11-10] MEDS: ceFAZolin 2 GM in NS PREMIX 2 GM/100 ML BAG IVPB SCH (10:40)
[2023-11-10] MEDS: Ondansetron ODT 4 mg TAB 4 MG TAB PO PRN (13:00)
[2023-11-10] MEDS: Ondansetron ODT 4 mg TAB 4 MG TAB ONE (13:17)
[2023-11-10] MEDS: Ondansetron 4 mg VIAL 2 MG/ML 2 ml VIAL IV PRN (17:42)
[2023-11-10] MEDS: HEPARIN 1000 UNIT/ML SCH (20:38)
[2023-11-10] MEDS: Calcium Carb (TUMS) 500 mg CHEW TAB PO ONE (22:38)
[2023-11-11] MEDS: NS 0.9% 250 ml 250 ML IV ONE (00:17)
[2023-11-11] MEDS: Al Hydrox/Mg Hydrox/Simet LIQ 30 ML UDC PO ONE (05:48)
[2023-11-11 05:56] LABS: Hematocrit 38.4 % (35-45); Hemoglobin 12.3 g/dL (11.5-14.3); Mean Corpuscular Hemoglobin 29.6 pg (27-33); Mean Corpuscular Hgb Conc 32.1 g/dL (31-36); Mean Corpuscular Volume 92.3 fL (80-97); Mean Platelet Volume 8.9 fL (7.5-11.2); Platelet Count 420 10^3/uL (150-450); Red Blood Count 4.16 10^6/uL (3.63-4.92); Red Cell Distribution Width 17.3 % (12-17); White Blood Count 18.8 10^3/uL (3.8-11.8)
[2023-11-11 06:26] LABS: Anion Gap 21 mmol/L (2-16); Blood Urea Nitrogen 67 mg/dL (6-24); CO2 Carbon Dioxide 26 mmol/L (22-32); Calcium 9.9 mg/dL (8.6-10.3); Chloride 90 mmol/L (101-111); Creatinine, Serum 9.16 mg/dL (0.51-0.95); Glucose 172 mg/dL (70-100); Potassium 4.2 mmol/L (3.5-5.0); Sodium 137 mmol/L (135-145); eGFR CKD-EPI 4.5 (>60)
[2023-11-11 06:27] LABS: ALT < 3 U/L (7-52); AST 11 U/L (13-39); Albumin 2.9 g/dL (3.2-5.2); Albumin/Globulin Ratio 0.7 (1-3); Alkaline Phosphatase 110 U/L (35-149); Globulin 4.3 g/dL (2-4); Magnesium 2.6 mg/dL (1.9-2.7); Total Bilirubin 0.2 mg/dL (0.2-1.0); Total Protein 7.2 g/dL (6.4-8.9)
[2023-11-11 08:42] LABS: ABS Basophils 0.1 10^3/uL (0.0-0.1); ABS Eosinophils 0.1 10^3/uL (0.0-0.5); ABS Lymphocytes 2.5 10^3/uL (1.0-4.8); ABS Monocytes 2.2 10^3/uL (0.0-0.9); ABS Neutrophils 13.9 10^3/uL (1.5-7.6); ABS Nucleated RBC 0.02 10^3/ul; Eosinophil % 0.8 %; Lymphocyte % 13.3 %; Nucleated Red Blood Cells % 0.1 %/100WBC (0.0-0.8); RBC Morphology Normal (Normal)
[2023-11-11 09:38] LABS: C Reactive Protein 112.71 mg/L (<8.01)
[2023-11-12 06:42] LABS: ABS Eosinophils 0.2 10^3/uL (0.0-0.5); ABS Lymphocytes 1.1 10^3/uL (1.0-4.8); ABS Monocytes 1.2 10^3/uL (0.0-0.9); ABS Neutrophils 10.1 10^3/uL (1.5-7.6); ABS Nucleated RBC 0.01 10^3/ul; Eosinophil % 1.6 %; Hemoglobin 10.6 g/dL (11.5-14.3); Lymphocyte % 8.8 %; Mean Corpuscular Hemoglobin 29.8 pg (27-33); Mean Corpuscular Hgb Conc 32.1 g/dL (31-36); Mean Platelet Volume 9.5 fL (7.5-11.2); Nucleated Red Blood Cells % 0.1 %/100WBC (0.0-0.8); Platelet Count 335 10^3/uL (150-450); Red Blood Count 3.55 10^6/uL (3.63-4.92); Red Cell Distribution Width 17.1 % (12-17); White Blood Count 12.7 10^3/uL (3.8-11.8)
[2023-11-12 07:01] LABS: Calcium 9.5 mg/dL (8.6-10.3); Creatinine, Serum 8.49 mg/dL (0.51-0.95); Magnesium 2.7 mg/dL (1.9-2.7); Phosphorus 7.4 mg/dL (2.5-5.0); Potassium 3.8 mmol/L (3.5-5.0); eGFR CKD-EPI 4.9 (>60)
[2023-11-12 13:56] VITALS: BP 76/50
[2023-11-12 16:24] LABS: C Reactive Protein 170.75 mg/L (<8.01)
== END 2023-11-12 15:56 | disposition short-term general hospital (02) | DRG 871 ==
LOC: PMRU 14:11
PROVIDERS: ADMIT Physical Medicine & Rehabilitation; ATTEND Physical Medicine & Rehabilitation

== ENCOUNTER 2023-11-12 13:28 | Inpatient (IN) ==
[2023-11-12 19:33] LABS: Osmolality Serum 310 mOsm/kg (275-295)
[2023-11-12] MEDS: cycloSPORINE Modified 25mg CAP PO SCH (20:32)
[2023-11-12] MEDS: CMCS: Febuxostat 40 mg TAB (NF) PO SCH (20:32)
[2023-11-12] MEDS: Ondansetron 4 mg VIAL 2 MG/ML 2 ml VIAL IV PRN (22:13)
[2023-11-13 06:31] LABS: Hematocrit 28.2 % (35-45); Hemoglobin 9.3 g/dL (11.5-14.3); Mean Corpuscular Hemoglobin 30.2 pg (27-33); Mean Corpuscular Hgb Conc 33.1 g/dL (31-36); Mean Corpuscular Volume 91.2 fL (80-97); Mean Platelet Volume 9.3 fL (7.5-11.2); Platelet Count 309 10^3/uL (150-450); Red Blood Count 3.09 10^6/uL (3.63-4.92); White Blood Count 9.8 10^3/uL (3.8-11.8)
[2023-11-13 07:38] LABS: ALT < 3 U/L (7-52); AST 9 U/L (13-39); Albumin 2.2 g/dL (3.2-5.2); Albumin/Globulin Ratio 0.7 (1-3); Alkaline Phosphatase 82 U/L (35-149); Anion Gap 18 mmol/L (2-16); Blood Urea Nitrogen 65 mg/dL (6-24); CO2 Carbon Dioxide 22 mmol/L (22-32); Calcium 8.6 mg/dL (8.6-10.3); Chloride 92 mmol/L (101-111); Creatinine, Serum 8.02 mg/dL (0.51-0.95); Globulin 3.1 g/dL (2-4); Glucose 121 mg/dL (70-100); Magnesium 2.4 mg/dL (1.9-2.7); Phosphorus 6.2 mg/dL (2.5-5.0); Potassium 3.8 mmol/L (3.5-5.0); Sodium 132 mmol/L (135-145); Total Bilirubin 0.2 mg/dL (0.2-1.0); Total Protein 5.3 g/dL (6.4-8.9); eGFR CKD-EPI 5.3 (>60)
[2023-11-13 08:26] LABS: ABS Eosinophils 0.2 10^3/uL (0.0-0.5); ABS Lymphocytes 1.1 10^3/uL (1.0-4.8); ABS Monocytes 1.5 10^3/uL (0.0-0.9); ABS Neutrophils 6.9 10^3/uL (1.5-7.6); ABS Nucleated RBC 0.04 10^3/ul; Eosinophil % 2.3 %; Lymphocyte % 11.2 %; Nucleated Red Blood Cells % 0.4 %/100WBC (0.0-0.8); RBC Morphology Normal (Normal)
[2023-11-13] MEDS: ceFAZolin 2 GM PREMIX 2 GM/50 ML BAG IVPB SCH (08:35)
[2023-11-13] MEDS: Cholecalciferol (VIT D3) 1,000 unit TAB PO SCH (08:48)
[2023-11-13] MEDS: Heparin *DIALYSIS* ONLY 1,000 UNITS/ML VIAL DIALYSIS SCH (09:04)
[2023-11-14 06:02] LABS: Hematocrit 27.9 % (35-45); Hemoglobin 9.1 g/dL (11.5-14.3); Mean Corpuscular Hemoglobin 30.1 pg (27-33); Mean Corpuscular Hgb Conc 32.7 g/dL (31-36); Mean Platelet Volume 9.6 fL (7.5-11.2); Platelet Count 303 10^3/uL (150-450); Red Blood Count 3.04 10^6/uL (3.63-4.92); Red Cell Distribution Width 17.3 % (12-17); White Blood Count 10.6 10^3/uL (3.8-11.8)
[2023-11-14 06:59] LABS: Calcium 8.2 mg/dL (8.6-10.3); Creatinine, Serum 7.69 mg/dL (0.51-0.95); Magnesium 2.3 mg/dL (1.9-2.7); Phosphorus 5.4 mg/dL (2.5-5.0); Potassium 3.6 mmol/L (3.5-5.0); eGFR CKD-EPI 5.5 (>60)
[2023-11-14 07:44] LABS: ABS Eosinophils 0.1 10^3/uL (0.0-0.5); ABS Lymphocytes 1.3 10^3/uL (1.0-4.8); ABS Monocytes 1.3 10^3/uL (0.0-0.9); ABS Neutrophils 7.8 10^3/uL (1.5-7.6); ABS Nucleated RBC 0.08 10^3/ul; Eosinophil % 1.4 %; Lymphocyte % 12.6 %; Nucleated Red Blood Cells % 0.7 %/100WBC (0.0-0.8); RBC Morphology Normal (Normal)
[2023-11-14] MEDS: Amoxicillin/Clavul 500/125 TAB (Augmentin 500 mg tab) PO SCH (10:21)
[2023-11-14] MEDS: Potassium Chlor 20 meq TAB.ER PO ONE (10:24)
[2023-11-14] MEDS: Ondansetron ODT 4 mg TAB 4 MG TAB SL ONE (12:28)
[2023-11-14 18:31] LABS: Hematocrit 27.6 % (35-45); Mean Corpuscular Hgb Conc 32.5 g/dL (31-36); Mean Corpuscular Volume 92.5 fL (80-97); Mean Platelet Volume 9.4 fL (7.5-11.2); Platelet Count 297 10^3/uL (150-450); Red Blood Count 2.99 10^6/uL (3.63-4.92); White Blood Count 12.5 10^3/uL (3.8-11.8)
[2023-11-15 07:12] LABS: Hematocrit 25.3 % (35-45); Hemoglobin 8.4 g/dL (11.5-14.3); Mean Corpuscular Hemoglobin 30.4 pg (27-33); Mean Corpuscular Hgb Conc 33.2 g/dL (31-36); Mean Corpuscular Volume 91.7 fL (80-97); Mean Platelet Volume 9.7 fL (7.5-11.2); Platelet Count 235 10^3/uL (150-450); Red Blood Count 2.76 10^6/uL (3.63-4.92); White Blood Count 10.7 10^3/uL (3.8-11.8)
[2023-11-15 08:25] LABS: Calcium 7.8 mg/dL (8.6-10.3); Creatinine, Serum 7.43 mg/dL (0.51-0.95); Magnesium 2.1 mg/dL (1.9-2.7); eGFR CKD-EPI 5.8 (>60)
[2023-11-15] MEDS ORDERED: Prochlorperazine 5 mg/ml 2 ml VIAL (10 mg) IV PRN (09:07)
[2023-11-16 06:31] LABS: Hematocrit 24.2 % (35-45); Mean Corpuscular Hemoglobin 30.1 pg (27-33); Mean Corpuscular Volume 91.1 fL (80-97); Mean Platelet Volume 9.6 fL (7.5-11.2); Platelet Count 261 10^3/uL (150-450); Red Blood Count 2.66 10^6/uL (3.63-4.92); Red Cell Distribution Width 17.2 % (12-17); White Blood Count 12.1 10^3/uL (3.8-11.8)
[2023-11-16 06:50] LABS: INR 10.04 (0.83-1.13)
[2023-11-16 06:55] LABS: ABS Basophils 0.1 10^3/uL (0.0-0.1); ABS Eosinophils 0.1 10^3/uL (0.0-0.5); ABS Lymphocytes 1.5 10^3/uL (1.0-4.8); ABS Monocytes 1.3 10^3/uL (0.0-0.9); ABS Neutrophils 9.1 10^3/uL (1.5-7.6); ABS Nucleated RBC 0.03 10^3/ul; Anisocytosis 1+; Lymphocyte % 12.5 %; Nucleated Red Blood Cells % 0.2 %/100WBC (0.0-0.8); Polychromasia 1+
[2023-11-16 07:14] LABS: Anion Gap 23 mmol/L (2-16); CO2 Carbon Dioxide 19 mmol/L (22-32); Chloride 88 mmol/L (101-111); Potassium 4.3 mmol/L (3.5-5.0); Sodium 130 mmol/L (135-145)
[2023-11-16 07:56] LABS: ALT < 3 U/L (7-52); AST 6 U/L (13-39); Albumin 1.9 g/dL (3.2-5.2); Albumin/Globulin Ratio 0.7 (1-3); Alkaline Phosphatase 95 U/L (35-149); Blood Urea Nitrogen 84 mg/dL (6-24); Calcium 7.7 mg/dL (8.6-10.3); Creatinine, Serum 8.79 mg/dL (0.51-0.95); Globulin 2.9 g/dL (2-4); Glucose 108 mg/dL (70-100); Indirect Bilirubin 0.2 mg/dL (0.3-1.0); Magnesium 2.3 mg/dL (1.9-2.7); Phosphorus 7.1 mg/dL (2.5-5.0); Total Bilirubin 0.2 mg/dL (0.2-1.0); Total Protein 4.8 g/dL (6.4-8.9); eGFR CKD-EPI 4.7 (>60)
[2023-11-16 08:26] LABS: INR 9.96 (0.83-1.13)
[2023-11-16] MEDS: Phytonadione IV (Adult) 10 MG in NS 0.9% 50 ML 50 ML IV ONE (09:48)
[2023-11-16] MEDS: Albumin Human 25% 25 GM/100 ML BTL IV SCH (12:54)
[2023-11-17 06:03] LABS: Hematocrit 24.3 % (35-45); Hemoglobin 7.9 g/dL (11.5-14.3); Mean Corpuscular Hemoglobin 30.2 pg (27-33); Mean Corpuscular Hgb Conc 32.7 g/dL (31-36); Mean Corpuscular Volume 92.1 fL (80-97); Mean Platelet Volume 9.7 fL (7.5-11.2); Platelet Count 224 10^3/uL (150-450); Red Blood Count 2.63 10^6/uL (3.63-4.92); Red Cell Distribution Width 16.8 % (12-17); White Blood Count 9.5 10^3/uL (3.8-11.8)
[2023-11-17 06:12] LABS: INR 1.7 (0.83-1.13)
[2023-11-17 06:18] LABS: Magnesium 2.5 mg/dL (1.9-2.7); Phosphorus 6.9 mg/dL (2.5-5.0)
[2023-11-17 07:53] LABS: ABS Eosinophils 0.1 10^3/uL (0.0-0.5); ABS Lymphocytes 1.4 10^3/uL (1.0-4.8); ABS Monocytes 1.2 10^3/uL (0.0-0.9); ABS Neutrophils 6.7 10^3/uL (1.5-7.6); ABS Nucleated RBC 0.02 10^3/ul; Anisocytosis 1+; Eosinophil % 1.5 %; Lymphocyte % 15.2 %; Nucleated Red Blood Cells % 0.2 %/100WBC (0.0-0.8)
[2023-11-17] MEDS: Albumin Human 25% 25 GM/100 ML BTL IV SCH (12:59)
[2023-11-17] MEDS ORDERED: Flumazenil 0.5 mg/5 ml 0.1 MG/ML 5 ml VIAL IV PRN (14:04)
[2023-11-17] MEDS ORDERED: Naloxone 0.4 mg VIAL 0.4 mg/ml 1 ml VIAL IV PUSH PRN (14:04)
[2023-11-17] MEDS ORDERED: fentaNYL 100 mcg/2 ml 50 MCG/ML VIAL ONE (14:32)
[2023-11-17] MEDS ORDERED: Midazolam 10 mg/10 ml VIAL 1 mg/ml 10 ml VIAL (10 mg) ONE (14:32)
[2023-11-17] MEDS: fentaNYL 100 mcg/2 ml 50 MCG/ML VIAL IV SLOW PU ONE (16:24)
[2023-11-17] MEDS: Lactated Ringers 1000 ml BAG 1,000 ML IV ONE (16:24)
[2023-11-17] MEDS: Lidocaine 2% JELLY 6 ML Topical TOPICAL ONE (16:25)
[2023-11-17] MEDS: Midazolam 10 mg/10 ml VIAL 1 mg/ml 10 ml VIAL (10 mg) IV SLOW PU ONE (16:25)
[2023-11-17] MEDS: Ondansetron 4 mg VIAL 2 MG/ML 2 ml VIAL IV ONE (16:25)
[2023-11-18 05:29] LABS: Hematocrit 21.1 % (35-45); Hemoglobin 6.8 g/dL (11.5-14.3); Mean Corpuscular Hemoglobin 29.1 pg (27-33); Mean Corpuscular Hgb Conc 32.1 g/dL (31-36); Mean Corpuscular Volume 90.8 fL (80-97); Mean Platelet Volume 9.5 fL (7.5-11.2); Platelet Count 224 10^3/uL (150-450); Red Blood Count 2.32 10^6/uL (3.63-4.92); Red Cell Distribution Width 16.5 % (12-17); White Blood Count 8.4 10^3/uL (3.8-11.8)
[2023-11-18 05:57] LABS: ABS Basophils 0.1 10^3/uL (0.0-0.1); ABS Eosinophils 0.2 10^3/uL (0.0-0.5); ABS Lymphocytes 1.4 10^3/uL (1.0-4.8); ABS Monocytes 1.2 10^3/uL (0.0-0.9); ABS Neutrophils 5.5 10^3/uL (1.5-7.6); ABS Nucleated RBC 0.02 10^3/ul; Lymphocyte % 17.1 %; Nucleated Red Blood Cells % 0.3 %/100WBC (0.0-0.8); RBC Morphology Normal (Normal)
[2023-11-18 06:12] LABS: Anion Gap 23 mmol/L (2-16); Blood Urea Nitrogen 82 mg/dL (6-24); CO2 Carbon Dioxide 20 mmol/L (22-32); Calcium 8.5 mg/dL (8.6-10.3); Chloride 90 mmol/L (101-111); Creatinine, Serum 8.71 mg/dL (0.51-0.95); Glucose 95 mg/dL (70-100); Potassium 3.9 mmol/L (3.5-5.0); Sodium 133 mmol/L (135-145); eGFR CKD-EPI 4.8 (>60)
[2023-11-18 06:13] LABS: ALT < 3 U/L (7-52); AST 6 U/L (13-39); Albumin/Globulin Ratio 1.4 (1-3); Alkaline Phosphatase 73 U/L (35-149); Globulin 2.2 g/dL (2-4); Total Bilirubin 0.3 mg/dL (0.2-1.0); Total Protein 5.2 g/dL (6.4-8.9)
[2023-11-18 07:52] LABS: Hematocrit 20.7 % (35-45); Hemoglobin 6.7 g/dL (11.5-14.3); Mean Corpuscular Hemoglobin 29.3 pg (27-33); Mean Corpuscular Hgb Conc 32.3 g/dL (31-36); Mean Corpuscular Volume 90.7 fL (80-97); Mean Platelet Volume 9.4 fL (7.5-11.2); Platelet Count 228 10^3/uL (150-450); Red Blood Count 2.28 10^6/uL (3.63-4.92); White Blood Count 8.9 10^3/uL (3.8-11.8)
[2023-11-18 08:16] LABS: INR 1.31 (0.83-1.13)
[2023-11-18 08:55] LABS: ABS Eosinophils 0.2 10^3/uL (0.0-0.5); ABS Lymphocytes 1.3 10^3/uL (1.0-4.8); ABS Monocytes 1.2 10^3/uL (0.0-0.9); ABS Neutrophils 6.1 10^3/uL (1.5-7.6); ABS Nucleated RBC 0.01 10^3/ul; Anisocytosis 2+; Eosinophil % 2.3 %; Lymphocyte % 15.1 %; Nucleated Red Blood Cells % 0.1 %/100WBC (0.0-0.8)
[2023-11-18 17:40] LABS: Hematocrit 26.9 % (35-45); Hemoglobin 8.7 g/dL (11.5-14.3)
[2023-11-18 18:18] LABS: % Iron Saturation 90 % (15-55); .Transferrin < 75 mg/dL (203-362); Iron 94 ug/dL (50-212); Total Iron Binding Capacity 105 mcg/dL (250-450); Unsaturated Iron Binding 11 ug/dL
[2023-11-18 18:34] LABS: Ferritin 743.2 ng/mL (11-307)
[2023-11-18 23:15] LABS: Hematocrit 26.1 % (35-45); Hemoglobin 8.6 g/dL (11.5-14.3)
[2023-11-19 06:31] LABS: Hematocrit 24.9 % (35-45); Hemoglobin 8.2 g/dL (11.5-14.3); Mean Corpuscular Hemoglobin 29.3 pg (27-33); Mean Corpuscular Hgb Conc 32.8 g/dL (31-36); Mean Corpuscular Volume 89.3 fL (80-97); Mean Platelet Volume 9.7 fL (7.5-11.2); Platelet Count 224 10^3/uL (150-450); Red Blood Count 2.78 10^6/uL (3.63-4.92); Red Cell Distribution Width 18.5 % (12-17); White Blood Count 8.7 10^3/uL (3.8-11.8)
[2023-11-19 07:56] LABS: Anion Gap 20 mmol/L (2-16); Blood Urea Nitrogen 69 mg/dL (6-24); CO2 Carbon Dioxide 22 mmol/L (22-32); Calcium 8.4 mg/dL (8.6-10.3); Chloride 91 mmol/L (101-111); Creatinine, Serum 7.16 mg/dL (0.51-0.95); Glucose 81 mg/dL (70-100); Potassium 3.8 mmol/L (3.5-5.0); Sodium 133 mmol/L (135-145)
[2023-11-19 07:58] LABS: ALT < 3 U/L (7-52); AST 6 U/L (13-39); Albumin 3.1 g/dL (3.2-5.2); Albumin/Globulin Ratio 1.4 (1-3); Alkaline Phosphatase 75 U/L (35-149); Globulin 2.2 g/dL (2-4); Magnesium 2.1 mg/dL (1.9-2.7); Phosphorus 3.9 mg/dL (2.5-5.0); Total Bilirubin 0.3 mg/dL (0.2-1.0); Total Protein 5.3 g/dL (6.4-8.9)
[2023-11-19 09:02] LABS: ABS Eosinophils 0.1 10^3/uL (0.0-0.5); ABS Lymphocytes 1.2 10^3/uL (1.0-4.8); ABS Monocytes 1.2 10^3/uL (0.0-0.9); ABS Neutrophils 6.2 10^3/uL (1.5-7.6); ABS Nucleated RBC 0.03 10^3/ul; Eosinophil % 1.6 %; Lymphocyte % 13.2 %; Nucleated Red Blood Cells % 0.3 %/100WBC (0.0-0.8)
[2023-11-20] MEDS: Calcium Carb (TUMS) 500 mg CHEW TAB PO ONE ×2 (05:53→22:38)
[2023-11-21 05:19] LABS: ABS Basophils 0.1 10^3/uL (0.0-0.1); ABS Eosinophils 0.2 10^3/uL (0.0-0.5); ABS Lymphocytes 1.2 10^3/uL (1.0-4.8); ABS Monocytes 1.5 10^3/uL (0.0-0.9); ABS Neutrophils 7.2 10^3/uL (1.5-7.6); ABS Nucleated RBC 0.02 10^3/ul; Eosinophil % 2.4 %; Hematocrit 30.9 % (35-45); Lymphocyte % 11.9 %; Mean Corpuscular Hemoglobin 28.5 pg (27-33); Mean Corpuscular Hgb Conc 32.3 g/dL (31-36); Mean Corpuscular Volume 88.3 fL (80-97); Mean Platelet Volume 9.3 fL (7.5-11.2); Nucleated Red Blood Cells % 0.2 %/100WBC (0.0-0.8); Platelet Count 308 10^3/uL (150-450); Red Cell Distribution Width 18.7 % (12-17); White Blood Count 10.2 10^3/uL (3.8-11.8)
[2023-11-21 05:47] LABS: Calcium 9.3 mg/dL (8.6-10.3); Creatinine, Serum 5.58 mg/dL (0.51-0.95); Magnesium 1.7 mg/dL (1.9-2.7); Phosphorus 2.3 mg/dL (2.5-5.0); Potassium 3.2 mmol/L (3.5-5.0); eGFR CKD-EPI 8.1 (>60)
[2023-11-21] MEDS ORDERED: Potassium Chlor 20 meq TAB.ER PO ONE (07:12)
[2023-11-21] MEDS: Magnesium Sulfate IV 1GM/100ML 1 GM/100 ML BAG IV ONE (08:55)
[2023-11-21] MEDS: Potassium Chlor 20 meq TAB.ER PO ONE (08:56)
[2023-11-21] MEDS: Calcium Carb (TUMS) 500 mg CHEW TAB PO SCH (19:42)
[2023-11-22] MEDS: Metoprolol Tartrate 5 mg VIAL 5 ml VIAL (1 mg/ml) IV ONE (12:27)
[2023-11-23 08:36] LABS: Calcium 8.6 mg/dL (8.6-10.3); Creatinine, Serum 5.08 mg/dL (0.51-0.95); Magnesium 1.6 mg/dL (1.9-2.7); Phosphorus 2.6 mg/dL (2.5-5.0); Potassium 3.5 mmol/L (3.5-5.0); eGFR CKD-EPI 9.1 (>60)
[2023-11-23] MEDS: cycloSPORINE Modified 25mg CAP PO SCH (20:21)
[2023-11-25 08:28] VITALS: BP 95/64
[2023-11-25] MEDS ORDERED: Vancomycin 1,000 MG in NS 0.9% 250 ml 250 ML IVPB ONE (12:00)
== END 2023-11-25 07:31 | DRG 981 ==
LOC: SUATTDRO 13:44 → MED 15:57
PROVIDERS: ADMIT Internal Medicine; ATTEND Internal Medicine

== ENCOUNTER 2023-11-24 13:24 | Inpatient (IN) ==
[2023-11-25] MEDS ORDERED: Senna TAB 8.6 mg TAB PO PRN (10:04)
[2023-11-25] MEDS: Ondansetron ODT 4 mg TAB 4 MG TAB PO PRN (13:15)
[2023-11-25] MEDS ORDERED: HEPARIN 1000 UNIT/ML SCH (21:00)
[2023-11-25] MEDS: cycloSPORINE Modified 25mg CAP PO SCH (21:44)
[2023-11-25] MEDS: HEPARIN 1000 UNIT/ML SCH (21:45)
[2023-11-26 05:59] LABS: Hematocrit 31.2 % (35-45); Hemoglobin 10.2 g/dL (11.5-14.3); Mean Corpuscular Hgb Conc 32.6 g/dL (31-36); Mean Corpuscular Volume 88.8 fL (80-97); Mean Platelet Volume 8.9 fL (7.5-11.2); Platelet Count 327 10^3/uL (150-450); Red Blood Count 3.51 10^6/uL (3.63-4.92); Red Cell Distribution Width 17.3 % (12-17); White Blood Count 9.5 10^3/uL (3.8-11.8)
[2023-11-26 06:28] LABS: Chloride 93 mmol/L (101-111); Potassium 3.3 mmol/L (3.5-5.0); Sodium 131 mmol/L (135-145)
[2023-11-26 06:44] LABS: Anion Gap 13 mmol/L (2-16); Blood Urea Nitrogen 35 mg/dL (6-24); CO2 Carbon Dioxide 25 mmol/L (22-32); Calcium 9.3 mg/dL (8.6-10.3); Creatinine, Serum 5.36 mg/dL (0.51-0.95); Glucose 139 mg/dL (70-100); eGFR CKD-EPI 8.5 (>60)
[2023-11-26 06:46] LABS: ALT < 3 U/L (7-52); AST 8 U/L (13-39); Albumin/Globulin Ratio 0.9 (1-3); Alkaline Phosphatase 100 U/L (35-149); Globulin 3.3 g/dL (2-4); Total Bilirubin 0.4 mg/dL (0.2-1.0); Total Protein 6.3 g/dL (6.4-8.9)
[2023-11-26 06:50] LABS: ABS Basophils 0.1 10^3/uL (0.0-0.1); ABS Eosinophils 0.5 10^3/uL (0.0-0.5); ABS Lymphocytes 1.6 10^3/uL (1.0-4.8); ABS Monocytes 2.1 10^3/uL (0.0-0.9); ABS Neutrophils 5.2 10^3/uL (1.5-7.6); Acanthocytes 1+; Eosinophil % 5.1 %; Lymphocyte % 16.5 %; Polychromasia 1+
[2023-11-26] MEDS ORDERED: Heparin 1,000 UNIT/ML 10 ml (10,000 UNITS) CATHLAB/DIALYSIS DIALYSIS SCH ×2 (09:00)
[2023-11-26] MEDS: Cholecalciferol (VIT D3) 1,000 unit TAB PO SCH (09:01)
[2023-11-26] MEDS: Potassium Chloride LIQUID 20 MEQ/15 ML LIQUID PO SCH (10:06)
[2023-11-27 15:49] VITALS: BP 154/94
[2023-11-28] MEDS: Iodixanol (CONTRAST) 320 MG/ML 100 ML SDV IV ONE (00:07)
[2023-11-28] MEDS ORDERED: Heparin DRIP 25,000 UNITS BAG 25,000 UNITS/250 ML BAG IV SCH (00:15)
[2023-11-28] MEDS ORDERED: Heparin 5000 UNITS/ML 1 mL VIAL IV SCH (01:00)
== END 2023-11-27 22:40 | disposition other institution (70) | DRG 871 ==
LOC: PMRU 11-25 09:30
PROVIDERS: ADMIT Physical Medicine & Rehabilitation; ATTEND Physical Medicine & Rehabilitation

== ENCOUNTER 2024-01-02 13:08 | Inpatient (IN) ==
[2024-01-03] MEDS: HYDROcodone/ACETAMIN 5/325 mg TAB PO PRN (04:37)
[2024-01-03] MEDS: Cholecalciferol (VIT D3) 1,000 unit TAB PO SCH (09:10)
[2024-01-03] MEDS: Aspirin EC 81 mg TAB.EC (enteric coated) PO SCH (09:14)
[2024-01-03] MEDS: cycloSPORINE Modified 25mg CAP PO SCH (09:15)
[2024-01-03] MEDS: HYDROcodone/Acetamin 10/325 TAB (NF) PO PRN (17:54)
[2024-01-03] MEDS: CMCS: Febuxostat 40 mg TAB (NF) PO SCH (22:04)
[2024-01-04] MEDS ORDERED: ASPIRIN 81 MG PO SCH (09:00)
[2024-01-04] MEDS ORDERED: Conjugated Estrogens VAG CM 42.5 gm TUBE VAGINAL SCH (09:00)
[2024-01-04] MEDS ORDERED: GENTAMICIN 0.1% TOPICAL SCH (09:00)
[2024-01-04] MEDS ORDERED: Heparin 1,000 UNIT/ML 10 ml (10,000 UNITS) CATHLAB/DIALYSIS DIALYSIS SCH (09:00)
[2024-01-04 09:06] VITALS: BP 121/78
== END 2024-01-04 11:32 | disposition short-term general hospital (02) | DRG 683 ==
LOC: MED 20:24 → SUATTDRO 20:24
PROVIDERS: ADMIT Hospitalist; ATTEND Family Medicine

== ENCOUNTER 2024-01-04 11:33 | Inpatient (IN) ==
[2024-01-04] MEDS ORDERED: Lactulose 30 ml UDC PO PRN (13:23)
[2024-01-04] MEDS: Heparin 1,000 UNIT/ML 10 ml (10,000 UNITS) CATHLAB/DIALYSIS DIALYSIS SCH (17:16)
[2024-01-04] MEDS: Desipramine 50 mg TAB PO SCH (17:48)
[2024-01-04] MEDS: Conjugated Estrogens VAG CM 42.5 gm TUBE VAGINAL SCH (19:52)
[2024-01-04] MEDS: cycloSPORINE Modified 25mg CAP PO SCH (19:54)
[2024-01-04] MEDS: CMCS:Febuxostat 40 mg TAB (NF) PO SCH (19:54)
[2024-01-05 06:48] LABS: ABS Eosinophils 0.1 10^3/uL (0.0-0.5); ABS Lymphocytes 1.4 10^3/uL (1.0-4.8); ABS Monocytes 0.6 10^3/uL (0.0-0.9); ABS Neutrophils 3.8 10^3/uL (1.5-7.6); ABS Nucleated RBC 0.03 10^3/ul; Eosinophil % 1.1 %; Hematocrit 25.5 % (35-45); Lymphocyte % 23.9 %; Mean Corpuscular Hemoglobin 30.2 pg (27-33); Mean Corpuscular Hgb Conc 31.5 g/dL (31-36); Mean Corpuscular Volume 95.8 fL (80-97); Nucleated Red Blood Cells % 0.6 %/100WBC (0.0-0.8); Platelet Count 331 10^3/uL (150-450); Red Blood Count 2.67 10^6/uL (3.63-4.92); Red Cell Distribution Width 18.1 % (12-17); White Blood Count 5.9 10^3/uL (3.8-11.8)
[2024-01-05 07:13] LABS: Blood Urea Nitrogen > 120 mg/dL (6-24)
[2024-01-05 07:24] LABS: Anion Gap 21 mmol/L (2-16); CO2 Carbon Dioxide 19 mmol/L (22-32); Calcium 7.8 mg/dL (8.6-10.3); Chloride 87 mmol/L (101-111); Creatinine, Serum 9.08 mg/dL (0.51-0.95); Glucose 75 mg/dL (70-100); Magnesium 1.7 mg/dL (1.9-2.7); Potassium 5.8 mmol/L (3.5-5.0); Sodium 127 mmol/L (135-145); eGFR CKD-EPI 4.5 (>60)
[2024-01-05] MEDS: Cholecalciferol (VIT D3) 1,000 unit TAB PO SCH (09:14)
[2024-01-05] MEDS: Heparin 1,000 UNIT/ML 10 ml (10,000 UNITS) CATHLAB/DIALYSIS DIALYSIS SCH (12:25)
[2024-01-05 15:28] LABS: Hepatitis B Surface Antigen Nonreactive (Nonreactive)
[2024-01-05 15:45] LABS: Hepatitis B Surface Ab Immune (Immune)
[2024-01-05] MEDS ORDERED: Morphine 2 MG/ML SYRINGE IV PRN (19:51)
[2024-01-06 05:55] LABS: Hematocrit 30.9 % (35-45); Hemoglobin 9.8 g/dL (11.5-14.3); Mean Corpuscular Hemoglobin 29.6 pg (27-33); Mean Corpuscular Hgb Conc 31.8 g/dL (31-36); Mean Corpuscular Volume 93.3 fL (80-97); Platelet Count 423 10^3/uL (150-450); Red Blood Count 3.31 10^6/uL (3.63-4.92); Red Cell Distribution Width 17.6 % (12-17); White Blood Count 6.7 10^3/uL (3.8-11.8)
[2024-01-06 06:09] LABS: Calcium 8.5 mg/dL (8.6-10.3); Creatinine, Serum 8.13 mg/dL (0.51-0.95); Magnesium 1.8 mg/dL (1.9-2.7); Phosphorus 5.1 mg/dL (2.5-5.0); Potassium 4.7 mmol/L (3.5-5.0); eGFR CKD-EPI 5.2 (>60)
[2024-01-06] MEDS: HYDROcodone/ACETAMIN 5/325 mg TAB PO PRN (06:12)
[2024-01-06 06:53] LABS: ABS Eosinophils 0.1 10^3/uL (0.0-0.5); ABS Lymphocytes 1.3 10^3/uL (1.0-4.8); ABS Monocytes 0.8 10^3/uL (0.0-0.9); ABS Neutrophils 4.5 10^3/uL (1.5-7.6); ABS Nucleated RBC 0.04 10^3/ul; Anisocytosis 1+; Eosinophil % 0.9 %; Lymphocyte % 19.9 %; Nucleated Red Blood Cells % 0.6 %/100WBC (0.0-0.8); Polychromasia 1+
[2024-01-06] MEDS ORDERED: Heparin 2 UNITS/ML 1000 mls 1,000 ML IV ONE (12:11)
[2024-01-06] MEDS ORDERED: Lidocaine 1% MPF 5 ML VIAL ONE (12:11)
[2024-01-06] MEDS ORDERED: Heparin 1,000 UNIT/ML 10 ml (10,000 UNITS) CATHLAB/DIALYSIS ONE (12:11)
[2024-01-06] MEDS ORDERED: Midazolam 5 mg/5 ml VIAL 1 mg/ml 5 ml VIAL (5 mg) ONE (12:30)
[2024-01-06] MEDS ORDERED: fentaNYL 100 mcg/2 ml 50 MCG/ML VIAL ONE (12:30)
[2024-01-06] MEDS: Clindamycin 600 MG/D5W BAG 600 MG/50 ML BAG IV ONE (12:37)
[2024-01-06] MEDS ORDERED: Phenylephrine 40 mcg/mL 10mL (400mcg) SYRINGE ONE (12:57)
[2024-01-06] MEDS ORDERED: NS 0.9% 1000 ml BAG 200 ML IV PRN (13:30)
[2024-01-06] MEDS ORDERED: oxyCODONE/Acetamin 5/325 mg TAB ONE (14:01)
[2024-01-06] MEDS: Albumin Human 25% 25 GM/100 ML BTL IV PRN (15:32)
[2024-01-06] MEDS: NS 0.9% 1000 ml BAG 100 ML IV PRN (16:00)
[2024-01-06] MEDS: Heparin 1,000 UNIT/ML 10 ml (10,000 UNITS) CATHLAB/DIALYSIS DIALYSIS PRN (17:36)
[2024-01-07 06:20] LABS: Hematocrit 23.7 % (35-45); Hemoglobin 7.5 g/dL (11.5-14.3); Mean Corpuscular Hemoglobin 29.8 pg (27-33); Mean Corpuscular Hgb Conc 31.9 g/dL (31-36); Mean Corpuscular Volume 93.5 fL (80-97); Mean Platelet Volume 8.7 fL (7.5-11.2); Platelet Count 287 10^3/uL (150-450); Red Blood Count 2.53 10^6/uL (3.63-4.92); Red Cell Distribution Width 17.8 % (12-17); White Blood Count 4.8 10^3/uL (3.8-11.8)
[2024-01-07 06:45] LABS: Calcium 8.1 mg/dL (8.6-10.3); Creatinine, Serum 5.47 mg/dL (0.51-0.95); Potassium 3.9 mmol/L (3.5-5.0); eGFR CKD-EPI 8.3 (>60)
[2024-01-07 08:31] LABS: ABS Eosinophils 0.1 10^3/uL (0.0-0.5); ABS Lymphocytes 0.8 10^3/uL (1.0-4.8); ABS Monocytes 0.5 10^3/uL (0.0-0.9); ABS Neutrophils 3.4 10^3/uL (1.5-7.6); ABS Nucleated RBC 0.01 10^3/ul; Anisocytosis 1+; Eosinophil % 1.3 %; Lymphocyte % 16.4 %; Nucleated Red Blood Cells % 0.1 %/100WBC (0.0-0.8); Polychromasia 1+
[2024-01-07] MEDS ORDERED: Heparin 1,000 UNIT/ML 10 ml (10,000 UNITS) CATHLAB/DIALYSIS DIALYSIS SCH (09:00)
[2024-01-07] MEDS: Aspirin EC 81 mg TAB.EC (enteric coated) PO SCH (16:46)
[2024-01-08 06:13] LABS: ABS Lymphocytes 1.3 10^3/uL (1.0-4.8); ABS Monocytes 0.9 10^3/uL (0.0-0.9); ABS Neutrophils 5.9 10^3/uL (1.5-7.6); Eosinophil % 0.4 %; Hematocrit 24.3 % (35-45); Hemoglobin 7.7 g/dL (11.5-14.3); Mean Corpuscular Hemoglobin 29.7 pg (27-33); Mean Corpuscular Hgb Conc 31.6 g/dL (31-36); Mean Platelet Volume 8.7 fL (7.5-11.2); Nucleated Red Blood Cells % 0.1 %/100WBC (0.0-0.8); Platelet Count 283 10^3/uL (150-450); Red Blood Count 2.59 10^6/uL (3.63-4.92); Red Cell Distribution Width 17.7 % (12-17); White Blood Count 8.1 10^3/uL (3.8-11.8)
[2024-01-08] MEDS: Ondansetron ODT 4 mg TAB 4 MG TAB SL PRN (12:09)
[2024-01-09 06:48] LABS: ABS Lymphocytes 1.6 10^3/uL (1.0-4.8); ABS Monocytes 0.9 10^3/uL (0.0-0.9); ABS Neutrophils 8.3 10^3/uL (1.5-7.6); ABS Nucleated RBC 0.01 10^3/ul; Eosinophil % 0.4 %; Hematocrit 26.9 % (35-45); Hemoglobin 8.8 g/dL (11.5-14.3); Mean Corpuscular Hemoglobin 30.4 pg (27-33); Mean Corpuscular Hgb Conc 32.6 g/dL (31-36); Mean Corpuscular Volume 93.1 fL (80-97); Nucleated Red Blood Cells % 0.1 %/100WBC (0.0-0.8); Platelet Count 314 10^3/uL (150-450); Red Blood Count 2.89 10^6/uL (3.63-4.92); Red Cell Distribution Width 17.9 % (12-17); White Blood Count 10.9 10^3/uL (3.8-11.8)
[2024-01-09 07:24] LABS: Calcium 8.8 mg/dL (8.6-10.3); Creatinine, Serum 5.2 mg/dL (0.51-0.95); Potassium 3.6 mmol/L (3.5-5.0); eGFR CKD-EPI 8.8 (>60)
[2024-01-09] MEDS: NS 0.9% 250 ml 250 ML IV ONE (10:17)
[2024-01-09] MEDS: Morphine 2 MG/ML SYRINGE IV PRN (11:40)
[2024-01-09] MEDS: cefTRIAXone 1 gm/50 mL D5W 1 GM/50 ML BAG IV SCH (20:59)
[2024-01-09 21:34] LABS: Budding Yeast Present /HPF (Absent); Urine Appearance Extra Turbid; Urine Bacteria Absent /HPF (Absent); Urine Bilirubin Negative (Negative); Urine Blood 3+ (Negative); Urine Glucose Negative (Negative); Urine Ketones Negative (Negative); Urine Nitrite Negative (Negative); Urine Protein 2+ (>=100 mg/dL) (Negative); Urine Red Blood Cell 3+(>10/hpf) /HPF (0-Trace); Urine Specific Gravity 1.011 (1.002-1.030); Urine Urobilinogen Negative (Negative); Urine White Blood Cell 3+(>20/hpf) /HPF (0-Trace)
[2024-01-09 21:50] LABS: Urine Color Amber
[2024-01-10 06:44] LABS: ABS Lymphocytes 0.9 10^3/uL (1.0-4.8); ABS Monocytes 0.7 10^3/uL (0.0-0.9); ABS Neutrophils 5.5 10^3/uL (1.5-7.6); ABS Nucleated RBC 0.01 10^3/ul; Eosinophil % 0.2 %; Hemoglobin 7.7 g/dL (11.5-14.3); Lymphocyte % 12.7 %; Mean Corpuscular Hemoglobin 30.2 pg (27-33); Mean Corpuscular Hgb Conc 32.1 g/dL (31-36); Mean Corpuscular Volume 93.9 fL (80-97); Mean Platelet Volume 8.8 fL (7.5-11.2); Nucleated Red Blood Cells % 0.1 %/100WBC (0.0-0.8); Platelet Count 213 10^3/uL (150-450); Red Blood Count 2.56 10^6/uL (3.63-4.92); Red Cell Distribution Width 17.7 % (12-17); White Blood Count 7.1 10^3/uL (3.8-11.8)
[2024-01-10 07:02] LABS: Calcium 7.6 mg/dL (8.6-10.3); Creatinine, Serum 3.02 mg/dL (0.51-0.95); Potassium 3.6 mmol/L (3.5-5.0); eGFR CKD-EPI 16.9 (>60)
[2024-01-11] MEDS: NS 0.9% 500 ml BAG 500 ML IV ONE (05:36)
[2024-01-11] MEDS: NS 0.9% 1000 ml BAG 1,000 ML IV ONE (11:31)
[2024-01-11 16:42] LABS: Urine Appearance Extra Turbid; Urine Bilirubin Negative (Negative); Urine Blood 1+ (Negative); Urine Glucose Negative (Negative); Urine Ketones Trace (Negative); Urine Nitrite Negative (Negative); Urine Protein 2+ (>=100 mg/dL) (Negative); Urine Urobilinogen Negative (Negative); Urine pH 5.5 (5.0-8.0)
[2024-01-11 16:48] LABS: Urine Color Light-Yellow
[2024-01-11] MEDS: Norepinephrine 4 MG/250mL D5W 4,000 MCG/250 ML BAG IV ONE (18:22)
[2024-01-11] MEDS: Norepinephrine 4 MG/250mL D5W 4,000 MCG/250 ML BAG IV SCH (18:27)
[2024-01-11] MEDS: Acetaminophen IV 1 GM/100ML 1,000 MG/100 ML BAG IV PRN (21:31)
[2024-01-12 01:49] LABS: Venous Bicarbonate HCO3 21.5 mmol/L (24-28)
[2024-01-12 04:16] LABS: Venous Bicarbonate HCO3 22.6 mmol/L (24-28)
[2024-01-12 04:22] LABS: Hematocrit 26.2 % (35-45); Mean Corpuscular Hemoglobin 29.8 pg (27-33); Mean Corpuscular Hgb Conc 30.5 g/dL (31-36); Mean Corpuscular Volume 97.7 fL (80-97); Mean Platelet Volume 9.1 fL (7.5-11.2); Platelet Count 205 10^3/uL (150-450); Red Blood Count 2.68 10^6/uL (3.63-4.92); Red Cell Distribution Width 19.1 % (12-17); White Blood Count 13.6 10^3/uL (3.8-11.8)
[2024-01-12] MEDS ORDERED: Piperacillin/Tazobac 3.375 BAG 3.375 GM/100 ML BAG IV ONE (04:31)
[2024-01-12 04:49] LABS: ABS Basophils 0.1 10^3/uL (0.0-0.1); ABS Lymphocytes 1.4 10^3/uL (1.0-4.8); ABS Monocytes 1.5 10^3/uL (0.0-0.9); ABS Neutrophils 10.6 10^3/uL (1.5-7.6); ABS Nucleated RBC 0.11 10^3/ul; Eosinophil % 0.3 %; Nucleated Red Blood Cells % 0.8 %/100WBC (0.0-0.8)
[2024-01-12 05:12] LABS: Albumin 2.3 g/dL (3.2-5.2); Albumin/Globulin Ratio 1.2 (1-3); C Reactive Protein 103.72 mg/L (<8.01); Calcium 8.8 mg/dL (8.6-10.3); Creatinine, Serum 4.66 mg/dL (0.51-0.95); Magnesium 2.1 mg/dL (1.9-2.7); Potassium 4.1 mmol/L (3.5-5.0); Total Bilirubin 0.4 mg/dL (0.2-1.0); Total Protein 4.3 g/dL (6.4-8.9)
[2024-01-12] MEDS: Zosyn 3.375 gm X 1 dose, then dose per Pharmacy IV ONE (05:17)
[2024-01-12 06:00] LABS: PCO2 Arterial 41 mmHg (35-45); PO2 Arterial 113 mmHg (80-100)
[2024-01-12] MEDS: methylPREDNISolone SOD SUCC 40 mg/ml 1 ml VIAL IV SCH (07:43)
[2024-01-12] MEDS: ZOSYN 3.375 GM Q12H per EXTENDED INFUSION IV SCH (10:29)
[2024-01-12] MEDS: methylPREDNISolone SOD SUCC 125 mg 2 ML VIAL IV SCH ×2 (11:32→15:56)
[2024-01-12] MEDS ORDERED: methylPREDNISolone SOD SUCC 125 mg 2 ML VIAL IV SCH (12:00)
[2024-01-12] MEDS ORDERED: Heparin DRIP 25,000 UNITS BAG 25,000 UNITS/250 ML BAG IV SCH (17:30)
[2024-01-12] MEDS ORDERED: Heparin 5000 UNITS/ML 1 mL VIAL IV PRN (18:00)
[2024-01-12 18:48] LABS: ABS Lymphocytes 0.6 10^3/uL (1.0-4.8); ABS Monocytes 0.4 10^3/uL (0.0-0.9); ABS Neutrophils 9.3 10^3/uL (1.5-7.6); ABS Nucleated RBC 0.04 10^3/ul; Hematocrit 25.7 % (35-45); Lymphocyte % 5.5 %; Mean Corpuscular Hemoglobin 29.9 pg (27-33); Mean Corpuscular Hgb Conc 30.9 g/dL (31-36); Mean Corpuscular Volume 96.6 fL (80-97); Mean Platelet Volume 9.2 fL (7.5-11.2); Nucleated Red Blood Cells % 0.4 %/100WBC (0.0-0.8); Platelet Count 175 10^3/uL (150-450); Red Blood Count 2.67 10^6/uL (3.63-4.92); White Blood Count 10.2 10^3/uL (3.8-11.8)
[2024-01-12] MEDS: Heparin DRIP 25,000 UNITS BAG 25,000 UNITS/250 ML BAG IV SCH (19:04)
[2024-01-12 19:25] LABS: Creatinine, Serum 2.51 mg/dL (0.51-0.95); eGFR CKD-EPI 21.1 (>60)
[2024-01-12] MEDS: Pantoprazole VIAL 40 MG VIAL IV SCH (20:01)
[2024-01-12] MEDS: CYCLOSPORINE IVPB SCH (21:58)
[2024-01-12] MEDS: NS 0.9% IVPB SCH (21:58)
[2024-01-12 23:13] LABS: Venous Bicarbonate HCO3 25.1 mmol/L (24-28)
[2024-01-13 03:29] LABS: PCO2 Arterial 35 mmHg (35-45); PO2 Arterial 64 mmHg (80-100)
[2024-01-13 04:50] LABS: Hematocrit 27.3 % (35-45); Hemoglobin 8.2 g/dL (11.5-14.3); Mean Corpuscular Hemoglobin 29.6 pg (27-33); Mean Corpuscular Volume 98.7 fL (80-97); Mean Platelet Volume 9.5 fL (7.5-11.2); Platelet Count 178 10^3/uL (150-450); Red Blood Count 2.77 10^6/uL (3.63-4.92); Red Cell Distribution Width 18.8 % (12-17)
[2024-01-13 05:18] LABS: Albumin 2.8 g/dL (3.2-5.2); Albumin/Globulin Ratio 1.4 (1-3); Calcium 8.3 mg/dL (8.6-10.3); Creatinine, Serum 2.72 mg/dL (0.51-0.95); Potassium 3.8 mmol/L (3.5-5.0); Total Bilirubin 0.7 mg/dL (0.2-1.0); Total Protein 4.8 g/dL (6.4-8.9); eGFR CKD-EPI 19.2 (>60)
[2024-01-13 06:06] LABS: ABS Lymphocytes 0.9 10^3/uL (1.0-4.8); ABS Monocytes 0.6 10^3/uL (0.0-0.9); ABS Neutrophils 10.4 10^3/uL (1.5-7.6); Anisocytosis 2+; Lymphocyte % 7.7 %; Nucleated Red Blood Cells % 0.9 %/100WBC (0.0-0.8); Polychromasia 1+; Toxic Granulation 2+
[2024-01-13] MEDS: Rocuronium 50 mg VIAL 10 mg/ml 5 ml VIAL (50 mg) ONE (11:18)
[2024-01-13] MEDS: Benzocaine/Butamben/Tetracain (CETACAINE - SINGLE USE) 5 gm TOPICAL ONE (11:28)
[2024-01-13] MEDS ORDERED: Midazolam 10 mg/10 ml VIAL 1 mg/ml 10 ml VIAL (10 mg) ONE (11:57)
[2024-01-13] MEDS ORDERED: Etomidate 40 mg/20 ml (2 MG/ML) 20 ml VIAL (40 mg) ONE (11:57)
[2024-01-13] MEDS: Morphine 2 MG/ML SYRINGE ONE (14:28)
[2024-01-13] MEDS: Phenylephrine 40 mcg/mL 10mL (400mcg) SYRINGE ONE ×2 (14:28→14:29)
[2024-01-13] MEDS: Lidocaine 1% VIAL 10 MG/ML 30 ML VIAL ONE (14:29)
[2024-01-13] MEDS ORDERED: fentaNYL 100 mcg/2 ml 50 MCG/ML VIAL IV SLOW PU PRN (14:33)
[2024-01-13 14:49] LABS: PCO2 Arterial 46 mmHg (35-45); PO2 Arterial 129 mmHg (80-100)
[2024-01-13] MEDS: Propofol 10 mg/ml 100 ML BTL 1,000 MG/100 ML BTL ONE (14:49)
[2024-01-13] MEDS: Propofol 10 mg/ml 100 ML BTL 1,000 MG/100 ML BTL IV SCH (15:06)
[2024-01-13] MEDS: Norepinephrine 16 MG/250mL NS 16,000 MCG/250 ML BAG IV SCH ×2 (15:40→16:50)
[2024-01-13 16:01] VITALS: BP 100/51
[2024-01-13] MEDS: Chlorhexidine MOUTHWASH 0.12% 15 ML UDC TOPICAL SCH (16:57)
[2024-01-13] MEDS ORDERED: Thiamine 100 MG/ML 2 ml VIAL 100 MG in NS 0.9% 50 ML 50 ML IV SCH (18:00)
[2024-01-13] MEDS ORDERED: LORazepam 2 mg VIAL 1 ml IV PUSH PRN (19:30)
[2024-01-13] MEDS ORDERED: Morphine 2 MG/ML SYRINGE IV PRN (19:30)
[2024-01-13] MEDS ORDERED: Lorazepam PYXIS KEY PRN ×2 (19:34→20:16)
[2024-01-13] MEDS: LORazepam 2 mg VIAL 1 ml IV PUSH ONE (19:44)
[2024-01-13] MEDS: LORazepam 2 mg VIAL 1 ml ONE (21:05)
[2024-01-13] MEDS: Morphine 4 MG/ML VIAL (1 ml) ONE (21:07)
== END 2024-01-13 19:51 | disposition expired | DRG 919 ==
LOC: EDUNIT# 11:33 → SUATTDRO 11:33 → MED 11:33 → ICU 01-11 15:39
PROVIDERS: ADMIT Hospitalist; ATTEND Internal Medicine Pulmonary Disease